=== PATIENT | male | born 1955 | race Caucasian/White ===

== ENCOUNTER 2023-01-19 08:05 | Outpatient (OUT) | payer MEDICARE, OTHER, SELFPAY ==
[2023-01-19 09:06] LABS: Basophils Absolute Auto 0.1 10^3/uL (0.0-0.1); Basophils Percent Auto 0.8 % (0.2-2.0); Eosinophils Absolute Auto 0.2 10^3/uL (0.0-0.7); Eosinophils Percent Auto 2.3 % (0.9-7.0); Hematocrit 42.3 % (42.0-54.0); Hemoglobin 13.8 g/dL (14.0-18.0); Immature Granulocytes Abs Auto 0.04 10^3/uL (0.00-0.03); Immature Granulocytes Pct Auto 0.6 % (0.0-0.5); Lymphocytes Absolute Auto 1.4 10^3/uL (1.2-3.8); Lymphocytes Percent Auto 20.8 % (20.5-60.0); Mean Corpuscular HGB Conc 32.6 g/dL (29.9-35.2); Mean Corpuscular Hemoglobin 29.2 pg (25.9-34.0); Mean Corpuscular Volume 89.6 fL (80.0-94.0); Mean Platelet Volume 9.7 fL (9.5-13.5); Monocytes Absolute Auto 0.5 10^3/uL (0.3-0.8); Monocytes Percent Auto 7.7 % (1.7-12.0); Neutrophils Absolute Auto 4.4 10^3/uL (1.4-6.5); Neutrophils Percent Auto 67.8 % (43.0-75.0); Platelet Count 271 10^3/uL (150-450); Red Blood Count 4.72 10^6/uL (4.70-6.10); White Blood Count 6.5 10^3/uL (4.0-11.0)
[2023-01-19 09:10] LABS: Alanine Aminotransferase 25 U/L (16-63); Anion Gap 14.7; BUN Creatinine Ratio 17.4; Carbon Dioxide 26.5 mmol/L (21.0-32.0); Chloride 105 mmol/L (98-107); Chol HDL Ratio 2.5; Cholesterol 135 mg/dL (<=200); Creatine Kinase 157 U/L (39-308); Estimated GFR (African America >60 (>=60); Estimated GFR (Non-African Ame >60 (>=60); Glucose 119 mg/dL (74-106); HDL Cholesterol 54 mg/dL (40-60); LDL Cholesterol Calculated 64.8 mg/dL; Magnesium 1.8 mg/dL (1.8-2.4); Potassium 4.2 mmol/L (3.5-5.1); Sodium 142 mmol/L (136-145); Triglycerides 81 mg/dL (<=150); VLDL CHOLESTEROL 16.2 mg/dL
[2023-01-19 09:25] LABS: Prostate Specific Antigen Scrn 1.14 ng/mL (<=4.00)
[2023-01-19 09:43] LABS: Estimated Average Glucose 123 mg/dL; Glycohemoglobin A1C 5.9 % (4.5-6.2)
[2023-01-19 10:33] LABS: Microalbumin Urine Random <1.3 mg/dL (<=30.0)
== END 2023-01-19 08:06 | disposition home or self-care (01) ==
PROVIDERS: PCP Internal Medicine; Visit Provider Internal Medicine
DX: E11.65 Type 2 diabetes mellitus with hyperglycemia (principal); I10 Essential (primary) hypertension; E78.00 Pure hypercholesterolemia, unspecified; R25.2 Cramp and spasm; Z12.5 Encounter for screening for malignant neoplasm of prostate; Z79.899 Other long term (current) drug therapy
CPT/HCPCS: 36415; 80048; 80061; 82043; 82550; 83036; 83735; 84460; 85025; G0103

== ENCOUNTER 2024-01-24 07:14 | Outpatient (OUT) | payer MEDICARE, OTHER, SELFPAY ==
[2024-01-24 08:32] LABS: Basophils Absolute Auto 0.1 10^3/uL (0.0-0.1); Basophils Percent Auto 1.2 % (0.2-2.0); Eosinophils Absolute Auto 0.2 10^3/uL (0.0-0.7); Eosinophils Percent Auto 3.3 % (0.9-7.0); Hematocrit 41.4 % (42.0-54.0); Hemoglobin 13.6 g/dL (14.0-18.0); Immature Granulocytes Abs Auto 0.03 10^3/uL (0.00-0.03); Immature Granulocytes Pct Auto 0.5 % (0.0-0.5); Lymphocytes Absolute Auto 1.3 10^3/uL (1.2-3.8); Lymphocytes Percent Auto 22.3 % (20.5-60.0); Mean Corpuscular HGB Conc 32.9 g/dL (29.9-35.2); Mean Corpuscular Hemoglobin 29.8 pg (25.9-34.0); Mean Corpuscular Volume 90.8 fL (80.0-94.0); Mean Platelet Volume 10.2 fL (9.5-13.5); Monocytes Absolute Auto 0.7 10^3/uL (0.3-0.8); Neutrophils Absolute Auto 3.5 10^3/uL (1.4-6.5); Neutrophils Percent Auto 60.7 % (43.0-75.0); Platelet Count 254 10^3/uL (150-450); Red Blood Count 4.56 10^6/uL (4.70-6.10); Red Cell Distribution Width 13.2 % (11.0-15.0); White Blood Count 5.8 10^3/uL (4.0-11.0)
[2024-01-24 08:58] LABS: Microalbumin Urine Random <1.3 mg/dL (<=30.0)
[2024-01-24 08:59] LABS: Alanine Aminotransferase 27 U/L (16-63); Albumin Globulin Ratio 1.3; Albumin Level 3.6 g/dL (3.4-5.0); Alkaline Phosphatase 59 U/L (46-116); Anion Gap 12.7; Aspartate Amino Transferase 18 U/L (15-37); BUN Creatinine Ratio 18.8; Bilirubin Total 0.3 mg/dL (0.2-1.0); Carbon Dioxide 26.1 mmol/L (21.0-32.0); Chloride 105 mmol/L (98-107); Chol HDL Ratio 3.9; Cholesterol 187 mg/dL (<=200); Estimated GFR (African America >60 (>=60); Estimated GFR (Non-African Ame >60 (>=60); Globulin 2.8 g/dL; Glucose 101 mg/dL (74-106); HDL Cholesterol 48 mg/dL (40-60); LDL Cholesterol Calculated 115.6 mg/dL; Potassium 4.8 mmol/L (3.5-5.1); Sodium 139 mmol/L (136-145); Total Protein 6.4 g/dL (6.4-8.2); Triglycerides 117 mg/dL (<=150); VLDL CHOLESTEROL 23.4 mg/dL
[2024-01-24 11:54] LABS: Estimated Average Glucose 117 mg/dL; Glycohemoglobin A1C 5.7 % (4.5-6.2)
== END 2024-01-24 07:15 | disposition home or self-care (01) ==
LOC: LAB 07:14
PROVIDERS: PCP Internal Medicine; Visit Provider Internal Medicine
DX: E78.00 Pure hypercholesterolemia, unspecified (principal); E11.65 Type 2 diabetes mellitus with hyperglycemia; I10 Essential (primary) hypertension; Z12.5 Encounter for screening for malignant neoplasm of prostate
CPT/HCPCS: 36415; 80053; 80061; 82043; 83036; 85025; G0103

== ENCOUNTER 2024-07-24 07:06 | Outpatient (OUT) | payer MEDICARE, OTHER, SELFPAY ==
--- OUTSIDE RECORDS SUMMARY | 2024-07-24 07:08 | XMS_ITS | CCD ---
Author Organization [facility] Care Team Providers Care Wireless Watcher Name Role Phone MD Kp Tran Attending Provider DO Raad Mccrary Primary Care Provider Raad Mccrary Primary Care Unavailable Kp Tran Admitting UnavailKp Guo Attending Unavailabl e Kp Tran Attending Unavailabl e Raad Mccrary Primary Care Unavailable Kp Tran Admitting UnavailMD Kp Guo Attending Provider [phone] DO Raad Mccrary Primary Care Provider DR RAAD MCCRARY Admitting Unavailable WES, DR HSU Primary Care Unavailable WES, DR HSU Consulting Unavailable WES, DR HSU Attending Unavailable WES, DR HSU Admitting Unavailable WES, DR HSU Primary Care Unavailable WES, DR HSU Attending Unavailable WES, DR HSU Admitting Unavailable WES, DR HSU Primary Care Unavailable WES, DR HSU Consulting Unavailable WES, DR HSU Attending Unavailable MICK, DR DAGOBERTO Kaufman Consulting Unavailable WES, DR HSU Primary Care Unavailable WES, DR HSU Consulting Unavailable WES, DR HSU Attending Unavailable WES, DR HSU Admitting Unavailable WES, DR HSU Primary Care Unavailable WES, DR HSU Consulting Unavailable WES, DR HSU Attending Unavailable WES, DR HSU Admitting Unavailable Wes, Raad Unavailable Medications Current Medications Medication Drug Class(es) Dates Sig (Normalized) Sig (Original) acetaminophen 325 mg / HYDROcodone bitartrate 5 mg oral tablet (20 sources) Opioid Agonist Start: 08-28-2023 End: 07-04-2024 take 1 tablet by mouth every six hours as needed for pain Hydrocodone-Aceta minophen 5-325 mg tablet Active 1 TAB PO Q6H as needed for Pain 120 July 04, 2024 Start: 08-28-2023 End: 08-28-2023 take 1 tablet by mouth every eight hours as needed for pain Hydrocodone-Acetaminophen 5-325 mg table t Discontinued 1 TAB PO Q8H as needed for Pain 90 August 28, 2023 August 28, 2023 12:51pm Start: 08-28-2023 End: 08-28-2023 take 1 tablet by mouth every eight hours as needed for pain Hydrocodone-Acetaminophen 5-325 mg table t Discontinued 1 TAB PO Q8H as needed for Pain 90 August 28, 2023 August 28, 2023 12:51pm Start: 08-28-2023 End: 08-28-2023 take 1 tablet by mouth every eight hours Hydrocodone-Acetaminophen Discontinued 1 TAB PO Q8H 90 August 28, 2023 August 28, 2023 1:51pm Start: 08-28-2023 End: 08-28-2023 take 1 tablet by mouth every eight hours Hydrocodone-Acetaminophen Discontinued 1 TAB PO Q8H 90 August 28, 2023 August 28, 2023 1:51pm Start: 08-28-2023 End: 08-28-2023 take 1 tablet by mouth every eight hours Hydrocodone-Acetaminophen Discontinued 1 TAB PO Q8H 90 August 28, 2023 August 28, 2023 1:51pm Start: 06-29-2023 take 1 tablet by deborah th every six hours HYDROcodone-Acetaminophen 5-325 MG 1 tab let Orally every 6 hrs Jun, Active Start: 05-29-2023 take 1 tablet by deborah th every six hours HYDROcodone-Acetaminophen 5-325 MG 1 tab let Orally every 6 hrs for 30 days start 05/29May, Active Start: 04-28-2023 take 1 tablet by deborah th every six hours HYDROcodone-Acetaminophen 5-325 MG 1 tab let Orally every 6 hrs for 30 days start04/28Apr, Active Start: 03-29-2023 take 1 tablet by deborah th every six hours HYDROcodone-Acetaminophen 5-325 MG 1 tab let Orally every 6 hrs start03/29Mar, Active Start: 02-27-2023 take 1 tablet by deborah th every six hours HYDROcodone-Acetaminophen 5-325 MG 1 tab let Orally every 6 hrs for 30 days start 02/27Feb, Active Start: 01-27-2023 take 1 tablet by deborah th every six hours HYDROcodone-Acetaminophen 5-325 MG 1 tab let Orally every 6 hrs for 30 days start 01/27Jan, Active Start: 12-27-2022 take 1 tablet by deborah th every six hours Start: 09-26-2022 take 1 tablet by deborah th every six hours HYDROcodone-Acetaminophen 5-325 MG 1 tab let Orally every 6 hrs start 09/26Sep, Active Start: 08-26-2022 take 1 tablet by deborah th every six hours HYDROcodone-Acetaminophen 5-325 MG 1 tab let Orally every 6 hrs for 30 days p/u 08/25, start 08/27Aug, Active Start: 07-28-2022 take 1 tablet by deborah th every six hours HYDROcodone-Acetaminophen 5-325 MG 1 tab let Orally every 6 hrs for 30 days Start 07/28Jul, Active Start: 04-18-2022 End: 08-28-2023 take 1 tablet by mouth every eight hours as needed for pain Hydrocodone-Acetaminophen 5-325 mg table t Discontinued 1 TAB PO Q8H as needed for Pain 120 30 July 31, 2023 August 28, 2023 12:27pm aspirin 81 mg oral tablet (20 sources) Platelet Aggregation Inhibitor, Nonsteroidal Anti-inflammatory Drug Start: 04-18-2022 take 1 capsule by mouth once daily Aspirin 81 mg Capsule Active 81 MG PO Daily April 18, 2022 12:00am take 1 tablet by deborah th every twenty-four hours Aspirin 81 MG 1 tablet Orally Once a day Active atorvastatin 10 mg oral tablet (20 sources) HMG-CoA Reductase Inhibitor Start: 04-18-2022 take 4 tablets by mouth once daily Atorvastatin 10 mg tablet Active 40 MG PO Daily April 18, 2022 12:00am Start: 04-18-2022 take 40 mg by mouth once daily Atorvastatin Active 40 MG PO Daily April 18, 2022 1:00am take 1 tablet by deborah th in the evening Atorvastatin Calcium 10 MG TAKE 1 TABLET BY MOUTH IN THE EVENING Not-Taking/PRN azithromycin 250 mg oral tablet (1 source) Macrolide Antimicrobial Start: 05-03-2024 Azithromycin 250 mg tablet Active 250 MG PO .COMPLEX 6 5 May 03, 2024 12:00am 2 tabs on first day followed by 1 tab on days 2-5 benazepril hydrochloride 20 mg oral tablet (20 sources) Angiotensin Converting Enzyme Inhibitor Start: 03-14-2024 take 1 tablet by mouth once daily Benazepril 20 mg tablet Active 0 .ROUTE .COMPLEX 90 March 14, 2024 7:42am TAKE 1 TABLET BY MOUTH EVERY DAY Start: 04-18-2022 End: 03-14-2024 take 1 tablet by mouth once daily Benazepril 20 mg tablet Discontinued 20 MG PO Daily April 18, 2022 12:00am March 14, 2024 7:42am meloxicam 7.5 mg oral tablet (20 sources) Nonsteroidal Anti-inflammatory Drug Start: 10-02-2023 take 1 tablet by mouth once daily at mealtime Meloxicam 7.5 mg tablet Active 0 .ROUTE .COMPLEX October 02, 2023 12:28pm TAKE 1 TABLET BY MOUTH EVERY DAY WITH FOOD Start: 04-18-2022 End: 10-02-2023 take 1 tablet by mouth once daily Meloxicam 7.5 mg tablet Discontinued 7.5 MG PO Daily April 18, 2022 12:00am October 02, 2023 12:29pm metFORMIN hydrochloride 500 mg oral tablet (20 sources) Biguanide Start: 02-23-2024 Metformin 500 mg tablet Active 0 .ROUTE .COMPLEX 180 February 23, 2024 11:51am TAKE 1 TABLET BEFORE BKFST AND EVENING MEAL 90 Start: 02-23-2024 Metformin Acti ve 0 .ROUTE .COMPLEX 180 February 23, 2024 12:51pm TAKE 1 TABLET BEFORE BKFST AND EVENING MEAL 90 Start: 04-18-2022 End: 02-23-2024 take 1 tablet by mouth once daily Metformin 500 mg tablet Discontinued 500 MG PO Daily April 18, 2022 12:00am February 23, 2024 11:51am take 1 tablet by deborah th every twelve hours metFORMIN HCl 500 MG 1 tablet with a meal Orally twice a day Active tiZANidine 4 mg oral tablet (19 sources) Central alpha-2 Adrenergic Agonist Start: 10-17-2023 End: 01-18-2024 take 1 tablet by mouth once daily at bedtime Tizanidine 4 mg tablet Active 4 MG PO Daily at bedtime January 18, 2024 3:08pm Start: 01-18-2023 tiZANidine HCl 4 MG 1/2 - 1 Orally q HS for 30 days Jan, Active Completed/Discontinued Medications Medication Drug Class(es) Dates Sig (Normalized) Sig (Original) Nirmatrelvir-Riton avir (Paxlovid) 300 mg (150 mg x 2)-100 mg tablets,dose pack (4 sources) Start: 12-11-2023 End: 01-23-2024 take 2 tablets by mouth once, then take 1 tablet by mouth twice daily Nirmatrelvir-Ritona vir (Paxlovid) 300 mg (150 mg x 2)-100 mg tablets,dose pack Discontinued 0 PO per package directions 08 11December 10, 2023 11:00pm January 23, 2024 8:30am take TWO 150 mg tablets of nirmatrelvir with ONE 100 mg tablet of ritonavir twice daily for 5 days orally per package directions; Start: 12-11-2023 End: 01-23-2024 take 2 tablets by mouth once, then take 1 tablet by mouth twice daily Nirmatrelvir-Ritonavir (Paxlovid) 300 mg (150 mg x 2)-100 mg tablets,dose pack Discontinued 0 PO per package directions 08 11December 11, 2023 12:00am January 23, 2024 9:30am take TWO 150 mg tablets of nirmatrelvir with ONE 100 mg tablet of ritonavir twice daily for 5 days orally per package directions; paxlovid (300/100) 20 x 150 mg & 10 x 100mg tablet therapy pack (5 sources) Start: 08-16-2022 take 3 tablets by mouth every twelve hours Paxlovid (300/100) 20 x 150 MG & 10 x 100MG 3 tablets Orally Twice a day for 5 day(s) Aug, Not-Taking/PRN {20 (nirmatrelvir 150 MG Oral Tablet) / 10 (ritonavir 100 MG Oral Tablet) } Pack [Paxlovid 5-Day] (12 sources) Start: 08-16-2022 take 3 tablets by mouth every twelve hours Start: 08-16-2022 take 3 tablets by mo uth every twelve hours Paxlovid (300/100) 20 x 150 MG & 10 x 100MG 3 tablets Orally Twice a day for 5 day(s) Aug, Not-Taking Start: 03-07-2023 take 3 tablets by mo ut every twelve hours Paxlovid (300/100) 20 x 150 MG & 10 x 100MG 3 tablets Orally Twice a day for 5 day(s) Aug, Active Problems Active Problems Problem Classification Problem Date Documented Date Episodic/Chronic Acute bronchitis (2 sources) Acute infective bronchitis; Translations: [Acute bronchitis due to other specified organisms] 05-03-2024 Episodic Allergic reactions (6 sources) Allergic contact dermatitis due to plants, except food; Translations: [Allergic contact dermatitis due to plants, except food] Episodic Deficiency and other anemia (5 sources) Anemia, unspecified; Translations: [Anemia, unspecified] Onset: 04-07-2022 Episodic Deficiency and other anemia (7 sources) Anemia; Translations: [Anemia, unspecified] 07-23-2024 Episodic Diabetes mellitus with complications (20 sources) Type 2 diabetes mellitus with hyperglycemia; Translations: [Hyperglycemia due to type 2 diabetes mellitus] Onset: 01-13-2022 Chronic Disorders of lipid metabolism (20 sources) Pure hypercholesterolemia, unspecified; Translations: [Hypercholesterolemia ] Onset: 04-10-2022 Chronic Essential hypertension (20 sources) Essential (primary) hypertension; Translations: [Essential hypertension] Onset: 01-13-2022 Chronic Hyperplasia of prostate (20 sources) Lower urinary tract symptoms due to benign prostatic hypertrophy; Translations: [Benign prostatic hyperplasia with lower urinary tract symptoms] Chronic Joint disorders and dislocations; trauma-related (6 sources) 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; Translations: [Traumatic arthropathy, left ankle and foot] 07-31-2023 Chronic Osteoarthritis (20 sources) Localized, secondary osteoarthritis of the ankle and/or foot; 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, left ankle and foot] Chronic Other aftercare (6 sources) High risk drug monitoring status; Translations: [shelter (current) use of opiate analgesic] Episodic Other aftercare (12 sources) Long-term current use of drug therapy; Translations: [shelter (current) use of opiate analgesic] Episodic Other aftercare (6 sources) 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 EHR Cmte Other and unspecified benign neoplasm (18 sources) Benign neoplasm of colon; Translations: [Benign neoplasm of descending colon] Episodic Other connective tissue disease (6 sources) Pain in limb; Translations: [Pain in left leg] Episodic Other connective tissue disease (2 sources) Cramp and spasm Episodic Other nervous system disorders (6 sources) Chronic pain due to injury; Translations: [Chronic pain due to trauma] Chronic Other nutritional; endocrine; and metabolic disorders (4 sources) Overweight; Translations: [Overweight] Episodic Other nutritional; endocrine; and metabolic disorders (4 sources) Overweight; Translations: [Overweight] 10-18-2023 Episodic Other screening for suspected conditions (not mental disorders or infectious disease) (6 sources) Encounter for screening for malignant neoplasm of prostate; Translations: [Screening for malignant neoplasms of prostate] Onset: 01-08-2022 Episodic Spondylosis; intervertebral disc disorders; other back problems (11 sources) Lumbar spondylosis; Translations: [Spondylosis without myelopathy or radiculopathy, lumbar region] 10-16-2023 Chronic Unclassified (1 source) Encounter for screening for malignant neoplasm of colon; Translations: [Encounter for screening for malignant neoplasm of colon] Onset: 04-18-2022 Unclassified (1 source) Encounter for preprocedural laboratory examination; Translations: [Encounter for preprocedural laboratory examination] Onset: 04-14-2022 Viral infection (5 sources) Disease caused by 2019-nCoV; Translations: [COVID-19] 12-11-2023 Episodic Past or Other Problems Problem Classification Problem Date Documented Da te Episodic/Chronic Other aftercare (1 source) Other correction (current) drug therapy; Translations: [OTH CARE HOME CURRENT DRUG THERAPY] Onset: 01-13-2022 Episodic Other connective tissue disease (4 sources) Pain in left leg; Translations: [PAIN IN LEFT LEG] Onset: 08-05-2021 Episodic Viral infection (1 source) COVID-19 Results Test Name Value Interpretation Reference Range Facility Basophils Auto (Bld) [#/Vol] on 01-24-2024 Basophils (Bld) [#/Vol] 0.1 10 3/uL 0.0-0.1 [facility] Basophils/100 WBC Auto (Bld) on 01-24-2024 Basophils/100 WBC (Bld) 1.2 % 0.2-2.0 [facility] Cholesterol in LDL Calc [Mas s/Vol]on 01-24-2024 Cholesterol in LDL [Mass/Vol] 115.6 mg/dL [facility] Comment on above: <100 mg/dl [id number] 0-129 mg/dl NEAR OR ABOVE [id number] mg/dl BORDERLINE [id number] mg/dl HIGH>190 mg/dl VERY HIGH Cholesterol in VLDL Calc [Ma ss/Vol]on 01-24-2024 Cholesterol in VLDL [Mass/Vol] 23.4 mg/dL [facility] Eosinophils/100 WBC Auto (Bl d)on 01-24-2024 Eosinophils/100 WBC (Bld) 3.3 % 0.9-7.0 [facility] Erythrocyte distribution wid th Auto (RBC) [Ratio]on 01-24-2024 Erythrocyte distribution width (RBC) [Ratio] 13.2 % 11.0-15.0 [facility] Estimated glomerular filtrat ion rate (GFR) non- Americanon 01-24-2024 GFR/1.73 sq M.predicted among non-blacks MDRD (S/P/Bld) [Vol rate/Area] mL/min/{1.73_m2} >=60 [facility] Globulin Calc (S) [Mass/Vol] on 01-24-2024 Globulin (S) [Mass/Vol] 2.8 g/dL [facility] Glucose mean value [Mass/vol ume] in Blood Estimated from glycated hemoglobinon 01-24-2024 Average glucose Estimated from glycated hemoglobin (Bld) [Mass/Vol] 117 mg/dL [facility] Hematocrit Auto (Bld) [Volum e fraction]on 01-24-2024 Hematocrit (Bld) [Volume fraction] 41.4 % Low 42.0-54.0 [facility] Hemoglobin [Mass/volume] in Bloodon 01-24-2024 Hemoglobin (Bld) [Mass/Vol] 13.6 g/dL Low 14.0-18.0 [facility] Laboratory - Chemistry and C hemistry - challengeon 01-24-2024 Albumin [Mass/Vol] 3.6 g/dL 3.4-5.0 [facility] ALP [Catalytic activity/Vol] 59 U/L 46-116 [facility] ALT [Catalytic activity/Vol] 27 U/L 16-63 [facility] AST [Catalytic activity/Vol] 18 U/L 15-37 [facility] Bilirubin [Mass/Vol] 0.3 mg/dL 0.2-1.0 [facility] Calcium [Mass/Vol] 9.0 mg/dL 8.5-10.1 [facility] Chloride [Moles/Vol] 105 mmol/L 98-107 [facility] Cholesterol [Mass/Vol] 187 mg/dL <=200 [facility] Cholesterol in HDL [Mass/Vol] 48 mg/dL 40-60 [facility] Comment on above: > or =60 mg/dl - LOW CARDIOVASCULAR RISK<40 mg/dl - HIGH CARDIOVASCULAR RISK CO2 [Moles/Vol] 26.1 mmol/L 21.0-32.0 [facility] Creatinine [Mass/Vol] 1.12 mg/dL 0.70-1.30 [facility] GFR/1.73 sq M.predicted MDRD (S/P/Bld) [Vol rate/Area] mL/min/{1.73_m2} >=60 [facility] Glucose [Mass/Vol] 101 mg/dL 74-106 [facility] Potassium [Moles/Vol] 4.8 mmol/L 3.5-5.1 [facility] Protein [Mass/Vol] 6.4 g/dL 6.4-8.2 [facility] Sodium [Moles/Vol] 139 mmol/L 136-145 [facility] Triglyceride [Mass/Vol] 117 mg/dL <=150 [facility] Urea nitrogen [Mass/Vol] 21.0 mg/dL High 7.0-18.0 [facility] Urea nitrogen/Creatinine [Mass ratio] 18.8 mg/mg [facility] Laboratory - Hematology and Cell countson 01-24-2024 HbA1c (Bld) [Mass fraction] 5.7 % 4.5-6.2 [facility] Comment on above: ADA RECOMMENDED LIMI T 4.0 - 6.0ADA THERAPEUTIC TARGET < 7.0ACTION SUGGESTED> 7.0 Immature granulocytes/100 WBC (Bld) 0.5 % 0.0-0.5 [facility] Leukocytes [#/volume] correc rehan for nucleated erythrocytes in Blood by Automated counon 01-24-2024 WBC corrected for nucl RBC Auto (Bld) [#/Vol] 5.8 10 3/uL 4.0-11.0 [facility] Lymphocytes Auto (Bld) [#/Vo l]on 01-24-2024 Lymphocytes (Bld) [#/Vol] 1.3 10 3/uL 1.2-3.8 [facility] Lymphocytes/100 WBC Auto (Bl d)on 01-24-2024 Lymphocytes/100 WBC (Bld) 22.3 % 20.5-60.0 [facility] MCH Auto (RBC) [Entitic mass ]on 01-24-2024 MCH (RBC) [Entitic mass] 29.8 pg 25.9-34.0 [facility] MCHC Auto (RBC) [Mass/Vol]on 01-24-2024 MCHC (RBC) [Mass/Vol] 32.9 g/dL 29.9-35.2 [facility] MCV Auto (RBC) [Entitic vol] on 01-24-2024 MCV (RBC) [Entitic vol] 90.8 fL 80.0-94.0 [facility] Microalbumin [Mass/volume] i n Urineon 01-24-2024 Albumin DL <= 20 mg/L (U) [Mass/Vol] mg/dL <=30.0 [facility] Monocytes Auto (Bld) [#/Vol] on 01-24-2024 Monocytes (Bld) [#/Vol] 0.7 10 3/uL 0.3-0.8 [facility] Monocytes/100 WBC Auto (Bld) on 01-24-2024 Monocytes/100 WBC (Bld) 12.0 % 1.7-12.0 [facility] Neutrophils Auto (Bld) [#/Vo l]on 01-24-2024 Neutrophils (Bld) [#/Vol] 3.5 10 3/uL 1.4-6.5 [facility] Neutrophils/100 WBC Auto (Bl d)on 01-24-2024 Neutrophils/100 WBC (Bld) 60.7 % 43.0-75.0 [facility] No Panel Informationon 01-23 Eosinophils # (Auto) 0.2 10 3/uL 0.0-0.7 [facility] Immature Granulocyte # (Auto) 0.03 10 3/uL 0.00-0.03 [facility] Prostate Specific Antigen Screen 1.00 ng/mL <=4.00 [facility] Platelet mean volume Auto (B ld) [Entitic vol]on 01-24-2024 Platelet mean volume (Bld) [Entitic vol] 10.2 fL 9.5-13.5 [facility] Platelets Auto (Bld) [#/Vol] on 01-24-2024 Platelets (Bld) [#/Vol] 254 10 3/uL 150-450 [facility] RBC Auto (Bld) [#/Vol]on RBC (Bld) [#/Vol] 4.56 10 6/uL Low 4.70-6.10 [facility] Serum or plasma albumin/glob ulin mass ratioon 01-24-2024 Albumin/Globulin [Mass ratio] 1.3 {ratio} [facility] Serum or plasma anion gap de terminationon 01-24-2024 Anion gap [Moles/Vol] 12.7 mmol/L [facility] Serum or plasma total choles terol/high density lipoprotein (HDL) cholesterol mass naye 01-24-2024 Cholesterol.total/Chol esterol in HDL [Mass ratio] 3.9 {ratio} [facility] Comment on above: 3.3 - 4.4 LOW RISK4. 4 - 7.1 AVERAGE RISK7.1 - 11.0 MODERATE RISK>11.0 HIGH RISK A1C with Estimated Average [facility] 07-22-2022 A1C with Estimated Average Glu [employer] Other GLYCOHEMOGLOBIN A1Con 2022 ADA RECOMMENDATION SEE BELOW Normal [facility] Comment on above: Result Comment: ADA RECOMMENDED LIMIT 4.0 - 6.0 ADA THERAPEUTIC TARGET < 7.0 ACTION SUGGESTED > 7.0 Performed By: #### A 1C #### [facility] [address], [place] [address] Dr. Ramiro Bain Glucose [Mass/Vol] 128 mg/dL Normal [facility] Comment on above: Performed By: #### A 1C #### [facility] [address], [place] [address] Dr. Ramiro aBin HbA1c (Bld) [Mass fraction] 6.1 % Normal 4.5-6.2 [facility] Comment on above: Performed By: #### A 1C #### [facility] [address], [place] [address] Dr. Ramiro Bain Glucose Glucometer (dC) [M ass/Vol]Ordered By: pK Tran on 04-18-2022 Glucose [Mass/Vol] 104 mg/dL [facility] Comment on above: Random Glucose Refer ence Range is dependent on time and content of last meal. Glucose of more than 200 mg/dL in a nonstressed, ambulatory subject supports the diagnosis of Diabetes Mellitus. Glucose Poct Glucometerson 1 06-18-2021 Glucose [Mass/Vol] 104 mg/dL Normal [facility] Comment on above: Result Comment: [place] Glucose Reference Range is dependent on time and content of last meal. Glucose of more than 200 mg/dL in a nonstressed, ambulatory subject supports the diagnosis of Diabetes Mellitus. PERFORMED BY: [facility] [address] [place] [address] PATHOLOGIST PROCESSING CLERK CELINE JOSUE M.D. Performed By: #### G SHAYNA #### Point of Care testing , COVID-19 Antigenon 2 COVID-19 Antigen Healthcare Worker?: N Reference Range: Negative Negative results, from patients with symptom onset beyond five days, should be treated as presumptive and confirmation with a molecular assay, if necessary, for patient management, may be performed. Negative results do not rule out COVID-19 and should not be used as the sole basis for treatment or patient management decisions, including infection control decisions. Negative results should be considered in the context of a patient's recent exposures, history and the presence of clinical signs and symptoms consistent with COVID-19. The Jacky SARS Antigen ISABELLE does not differentiate between SARS-CoV and SARS-CoV-2. This test was developed and its performance characteristic determined by [employer] and validated at [facility]. This test has not been FDA cleared or approved. This test has been authorized by FDA under an Emergency Use Authorization (EUA). This test has been validated in accordance with the FDA's Guidance Document (Policy for Diagnostics Testing in Laboratories Certified to Perform High Complexity Testing under CLIA prior to Emergency Use Authorization for Coronavirus Disease-2019 during the Public Health Emergency) issued on September 12, 2019. This test is only authorized for the duration of time the declaration that circumstances exist justifying the authorization of the emergency use of in vitro diagnostic tests for detection of SARS-CoV-2 virus and/or diagnosis of COVID-19 infection under section 564(b)(1) of the Act, 21 U.S.C. 360bbb-3(b)(1), unless the authorization is terminated or revoked sooner. SARS-CoV+SARS-CoV- 2 (COVID-19) Ag [Presence] in Respiratory specimen by Rapid immunoassay Negative for SARS Antigen by ISABELLE PERFORMED BY: [facility] [address] [place] [address] PATHOLOGIST PROCESSING CLERK CELINE JOSUE M.D. Normal [facility] Comment on above: Performed By: #### S OFIANEG, COVID-19 JACKY #### [facility] [address] COVID-19 SOFIAOrdered By: Meggan Tran on 04-14-2022 SARS-CoV+SARS-CoV-2 (COVID-19) Ag IA.rapid Ql (Resp) Negative Negative [facility] Comment on above: This is a duplicate Jacky SARS Antigen (ISABELLE) result to be used for statistical tracking purpose only. No Panel InformationOrdered By: Kp Tran on 04-14-2022 SARS Antigen (LFIA) [facility] Jacky Ag Negativeon 04-14-20 Jacky Ag Negative Negative Normal Negative [facility] Comment on above: Result Comment: This is a duplicate Jacky SARS Antigen (ISABELLE) result to be used for statistical tracking purpose only. PERFORMED BY: [facility] [address] [place] [address] PATHOLOGIST PROCESSING CLERK CELINE JOSUE M.D. Performed By: #### S OFVALARIEEG, COVID-19 JACKY #### [facility] [address] CBC AUTO DIFFon 04-07-2022 BASO # 0.1 103/ul Normal 0.0-0.1 [facility] Comment on above: Performed By: #### C BC #### [facility] [address] [address] [address] Ramiro Bain Basophils/100 WBC (Bld) 1.0 % Normal 0.2-2.0 [facility] Comment on above: Performed By: #### C BC #### [facility] [address] [address] [address] Ramiro Bain EO # 0.2 103/ul Normal 0.0-0.7 [facility] Comment on above: Performed By: #### C BC #### [facility] [address] [address] [address] Ramiro Bain Eosinophils/100 WBC (Bld) 2.3 % Normal 0.9-7.0 [facility] Comment on above: Performed By: #### C BC #### [facility] [address] [address] [address] Ramiro Bain Erythrocyte distribution width (RBC) [Ratio] 12.7 % Normal 11.0-15.0 [facility] Comment on above: Performed By: #### C BC #### [facility] [address] [address] [address] Ramiro Bain Hematocrit (Bld) [Volume fraction] 41.6 % Critically low 42.0-54.0 [facility] Comment on above: Performed By: #### C BC #### [facility] [address] [place] [address] Dr. Ramiro Bain Hemoglobin (Bld) [Mass/Vol] 13.8 g/dL Critically low 14.0-18.0 [facility] Comment on above: Performed By: #### C BC #### [facility] [address] [place] [address] Dr. Ramiro Bain IG # 0.03 10e3/ul Normal 0.00-0.03 [facility] Comment on above: Performed By: #### C BC #### [facility] [address] [place] [address] Dr. Ramiro Bain IG % 0.4 % Normal 0.0-0.5 [facility] Comment on above: Performed By: #### C BC #### [facility] [address] [place] [address] Dr. Ramiro Bain LYMPH # 1.8 103/ul Normal 1.2-3.8 [facility] Comment on above: Performed By: #### C BC #### [facility] [address] [place] [address] Dr. Ramiro Bain Lymphocytes/100 WBC (Bld) 22.4 % Normal 20.5-60.0 [facility] Comment on above: Performed By: #### C BC #### [facility] [address] [place] [address] Dr. Ramiro Bain MANUAL DIFF REQ NO Normal [facility] Comment on above: Performed By: #### C BC #### [facility] [address] [place] [address] Dr. Ramiro Bain MCH (RBC) [Entitic mass] 29.9 pg Normal 25.9-34.0 [facility] Comment on above: Performed By: #### C BC #### [facility] [address] [place] [address] Dr. Ramiro Bain MCHC (RBC) [Mass/Vol] 33.2 g/dL Normal 29.9-35.2 [facility] Comment on above: Performed By: #### C BC #### [facility] [address] [address] [address] Ramiro Bain MCV (RBC) [Entitic vol] 90.0 fL Normal 80.0-94.0 [facility] Comment on above: Performed By: #### C BC #### [facility] [address] [address] [address] Ramiro Bain MONO # 0.7 103/ul Normal 0.3-0.8 [facility] Comment on above: Performed By: #### C BC #### [facility] [address] [address] [address] Ramiro Bain Monocytes/100 WBC (Bld) 8.2 % Normal 1.7-12.0 [facility] Comment on above: Performed By: #### C BC #### [facility] [address] [place] [address] Dr. Ramiro Bain NEUT # 5.4 103/ul Normal 1.4-6.5 [facility] Comment on above: Performed By: #### C BC #### [facility] [address] [place] [address] Dr. Ramiro Bain Neutrophils/100 WBC (Bld) 65.7 % Normal 43.0-75.0 [facility] Comment on above: Performed By: #### C BC #### [facility] [address] [place] [address] Dr. Ramiro Bain Platelet mean volume (Bld) [Entitic vol] 9.3 fL Critically low 9.5-13.5 [facility] Comment on above: Performed By: #### C BC #### [facility] [address] [place] [address] Dr. Ramiro Bain PLT 272 103/ul Normal 150-450 [facility] Comment on above: Performed By: #### C BC #### [facility] [id number] Ramiro Bain RBC 4.62 106/ul Critically low 4.70-6.10 [facility] Comment on above: Performed By: #### C BC #### [facility] [address] [address] [address] Ramiro Bain WBC 8.1 103/ul Normal 4.0-11.0 [facility] Comment on above: Performed By: #### C BC #### [facility] [address] [place] [address] Dr. Ramiro Bain CPKon 04-07-2022 CK [Catalytic activity/Vol] 130 U/L Normal 39-308 [facility] Comment on above: Performed By: #### A LT DLDL, CK #### [facility] [address] [place] [address] Dr. Ramiro Bain DIRECT LDLon 04-07-2022 Cholesterol in LDL [Mass/Vol] 62 mg/dL Normal [facility] Comment on above: Performed By: #### A LT DLDL, CK #### [facility] [address] [place] [address] Dr. Ramiro Bain DLDL NORMAL SEE BELOW Normal [facility] Comment on above: Result Comment: <100 mg/dl OPTIMAL 100 - 129 mg/dl NEAR OR ABOVE OPTIMAL 130 - 159 mg/dl BORDERLINE HIGH 160 - 189 mg/dl HIGH >190 mg/dl VERY HIGH Performed By: #### A DAVID COATSL, CK #### [facility] [address] [place] [address] Dr. Ramiro Bain SGPTon 04-07-2022 ALT [Catalytic activity/Vol] 23 U/L Normal 16-63 [facility] Comment on above: Performed By: #### A LT DLDL, CK #### [facility] [address] [place] [address] Dr. Ramiro Bain CBC AUTO DIFFon 01-08-2022 BASO # 0.1 103/ul Normal 0.0-0.1 [facility] Comment on above: Performed By: #### C BC #### [facility] [address] [place] [address] Dr. Ramiro Bain Basophils/100 WBC (Bld) 1.1 % Normal 0.2-2.0 [facility] Comment on above: Performed By: #### C BC #### [facility] [address] [place] [address] Dr. Ramiro Bain EO # 0.2 103/ul Normal 0.0-0.7 [facility] Comment on above: Performed By: #### C BC #### [facility] [address] [place] [address] Dr. Ramiro Bain Eosinophils/100 WBC (Bld) 3.1 % Normal 0.9-7.0 [facility] Comment on above: Performed By: #### C BC #### [facility] [address] [place] [address] Dr. Ramiro aBin Erythrocyte distribution width (RBC) [Ratio] 12.8 % Normal 11.0-15.0 [facility] Comment on above: Performed By: #### C BC #### [facility] [address] [place] [address] Dr. Ramiro Bain Hematocrit (Bld) [Volume fraction] 41.2 % Critically low 42.0-54.0 [facility] Comment on above: Performed By: #### C BC #### [facility] [address] [place] [address] Dr. Ramiro Bain Hemoglobin (Bld) [Mass/Vol] 13.8 g/dL Critically low 14.0-18.0 [facility] Comment on above: Performed By: #### C BC #### [facility] [address] [place] [address] Dr. Ramiro Bain IG # 0.03 10e3/ul Normal 0.00-0.03 [facility] Comment on above: Performed By: #### C BC #### [facility] [address] [place] [address] Dr. Ramiro Bain IG % 0.4 % Normal 0.0-0.5 [facility] Comment on above: Performed By: #### C BC #### [facility] [address] [place] [address] Dr. Ramiro Bain LYMPH # 2.1 103/ul Normal 1.2-3.8 [facility] Comment on above: Performed By: #### C BC #### [facility] [address] [place] [address] Dr. Ramiro Bain Lymphocytes/100 WBC (Bld) 29.5 % Normal 20.5-60.0 [facility] Comment on above: Performed By: #### C BC #### [facility] [address] [place] [address] Dr. Ramiro Bain MANUAL DIFF REQ NO Normal [facility] Comment on above: Performed By: #### C BC #### [facility] [address] [place] [address] Dr. Ramiro Bain MCH (RBC) [Entitic mass] 30.5 pg Normal 25.9-34.0 [facility] Comment on above: Performed By: #### C BC #### [facility] [address] [place] [address] Dr. Ramiro Bain MCHC (RBC) [Mass/Vol] 33.5 g/dL Normal 29.9-35.2 [facility] Comment on above: Performed By: #### C BC #### [facility] [address] [place] [address] Dr. Ramiro Bain MCV (RBC) [Entitic vol] 90.9 fL Normal 80.0-94.0 [facility] Comment on above: Performed By: #### C BC #### [facility] [address] [place] [address] Dr. Ramiro Bain MONO # 0.6 103/ul Normal 0.3-0.8 [facility] Comment on above: Performed By: #### C BC #### [facility] [address] [place] [address] Dr. Ramiro Bain Monocytes/100 WBC (Bld) 8.6 % Normal 1.7-12.0 [facility] Comment on above: Performed By: #### C BC #### [facility] [address] [place] [address] Dr. Ramiro Bain NEUT # 4.0 103/ul Normal 1.4-6.5 [facility] Comment on above: Performed By: #### C BC #### [facility] [address] [place] [address] Dr. Ramiro Bain Neutrophils/100 WBC (Bld) 57.3 % Normal 43.0-75.0 [facility] Comment on above: Performed By: #### C BC #### [facility] [address] [address] [address] Ramiro Bain Platelet mean volume (Bld) [Entitic vol] 9.1 fL Critically low 9.5-13.5 [facility] Comment on above: Performed By: #### C BC #### [facility] [address] [address] [address] Ramiro Bain PLT 272 103/ul Normal 150-450 [facility] Comment on above: Performed By: #### C BC #### [facility] [address] [address] [address] Ramiro Bain RBC 4.53 106/ul Critically low 4.70-6.10 [facility] Comment on above: Performed By: #### C BC #### [facility] [address] [address] [address] Ramiro Bain WBC 7.0 103/ul Normal 4.0-11.0 [facility] Comment on above: Performed By: #### C BC #### [facility] [address] [address] [address] Ramiro Bain GLYCOHEMOGLOBIN A1Con 2021 ADA RECOMMENDATION SEE BELOW Normal [facility] Comment on above: Result Comment: ADA RECOMMENDED LIMIT 4.0 - 6.0 ADA THERAPEUTIC TARGET < 7.0 ACTION SUGGESTED > 7.0 Performed By: #### A 1C ####[facility] [address] [address]Dr. Ramiro Bain Glucose [Mass/Vol] 126 mg/dL Normal [facility] Comment on above: Performed By: #### A 1C ####[facility] [address] [id number]. Ramiro Bain HbA1c (Bld) [Mass fraction] 6.0 % Normal 4.5-6.2 [facility] Comment on above: Performed By: #### A 1C ####[facility] [address] [address]Dr. Ramiro Bain LIPID PROFILEon 01-08-2022 CHOL-HDL RATIO NORM SEE BELOW Normal [facility] Comment on above: Result Comment: 3.3 - 4.4 LOW RISK 4.4 - 7.1 AVERAGE RISK 7.1 - 11.0 MODERATE RISK >11.0 HIGH RISK Performed By: #### L IPID, ALT, BMP #### [facility] [address] [address] [address] Ramiro Bain Cholesterol [Mass/Vol] 195 mg/dL Normal <=[address] [facility] Comment on above: Performed By: #### L IPID, ALT, BMP #### [facility] [address] [address] [address] Ramiro Bain Cholesterol in HDL [Mass/Vol] 42 mg/dL Normal 40-60 [facility] Comment on above: Performed By: #### L IPID, ALT, BMP #### [facility] [address] [place] [address] Dr. Ramiro Bain Cholesterol in LDL [Mass/Vol] 119.0 mg/dL Normal [facility] Comment on above: Performed By: #### L IPID, ALT, BMP #### [facility] [address] [address] [address] Ramiro Bain Cholesterol.total/Chol esterol in HDL [Mass ratio] 4.6 {ratio} Normal [facility] Comment on above: Performed By: #### L IPID, ALT, BMP #### [facility] [address] [address] [address] Ramiro Bain HDL NORMAL > or = 60 mg/dl - LOW CARDIOVASCULAR RISK <40 mg/dl - HIGH CARDIOVASCULAR RISK Normal [facility] Comment on above: Performed By: #### L IPID, ALT, BMP #### [facility] [address] [place] [address] Dr. Ramiro Bain LDL CALC NORMAL SEE BELOW Normal [facility] Comment on above: Result Comment: <100 mg/dl OPTIMAL 100 - 129 mg/dl NEAR OR ABOVE OPTIMAL 130 - 159 mg/dl BORDERLINE HIGH 160 - 189 mg/dl HIGH >190 mg/dl VERY HIGH Performed By: #### L IPID, ALT, BMP #### [facility] [address] [address] [address] Ramiro Bain Triglyceride [Mass/Vol] 168 mg/dL Critically high <=150 [facility] Comment on above: Performed By: #### L IPID, ALT, BMP #### [facility] [address] [address] [address] Ramiro Bain VLDL CALC 33.6 mg/dL Normal [facility] Comment on above: Performed By: #### L IPID, ALT, BMP #### [facility] [address] [address] [address] Ramiro Bain MICROALBUMIN, RAND URon 07-3 mALB 1.4 mg/L Normal <=30.0 [facility] Comment on above: Performed By: #### M ALBR ####[facility] [address] [address]DrFernando Bain PROF CHEM 8 (BAS METB)on Anion gap [Moles/Vol] 10.8 mmol/L Normal [facility] Comment on above: Performed By: #### L IPID, ALT, BMP ####[facility] [address] [address]DrFernando Bain Calcium [Mass/Vol] 8.7 mg/dL Normal 8.5-10.1 [facility] Comment on above: Performed By: #### L IPID, ALT, BMP ####[facility] [address] [address]DrFernando Bain Chloride [Moles/Vol] 107 mmol/L Normal 98-107 [facility] Comment on above: Performed By: #### L IPID, ALT, BMP ####[facility] [address] [address]DrFernando Bain CO2 [Moles/Vol] 27.7 mmol/L Normal 21.0-32.0 [facility] Comment on above: Performed By: #### L IPID, ALT, BMP ####[facility] [address] [address]Dr. Ramiro Bain Creatinine [Mass/Vol] 1.12 mg/dL Normal 0.70-1.30 [facility] Comment on above: Performed By: #### L IPID, ALT, BMP ####[facility] [address] [address]Dr. Ramiro Bain EGFR-AF BENINESE >60 Normal >=60 [facility] Comment on above: Performed By: #### L IPID, ALT, BMP ####[facility] [address] [address]Dr. Ramiro Bain EGFR-NON AF BENINESE >60 Normal >=60 [facility] Comment on above: Performed By: #### L IPID, ALT, BMP ####[facility] [address] [address]Dr. Ramiro Bain Glucose [Mass/Vol] 110 mg/dL Critically high 74-106 [facility] Comment on above: Performed By: #### L IPID, ALT, BMP ####[facility] [address] [address]Dr. Ramiro Bain Potassium [Moles/Vol] 4.5 mmol/L Normal 3.5-5.1 [facility] Comment on above: Performed By: #### L IPID, ALT, BMP ####[facility] [address] [address]Dr. Ramiro Bain Sodium [Moles/Vol] 141 mmol/L Normal 136-145 [facility] Comment on above: Performed By: #### L IPID, ALT, BMP ####[facility] [address] [address]Dr. Ramiro Bain Urea nitrogen [Mass/Vol] 22.0 mg/dL Critically high 7.0-18.0 [facility] Comment on above: Performed By: #### L IPID, ALT, BMP ####[facility] [address] [address]Dr. Ramiro Bain Urea nitrogen/Creatinine [Mass ratio] 19.6 mg/mg Normal [facility] Comment on above: Performed By: #### L IPID, ALT, BMP ####[facility] [address] [place], [place] [address]Fa. Ramiro Bain SGPTon 01-08-2022 ALT [Catalytic activity/Vol] 22 U/L Normal 16-63 [facility] Comment on above: Performed By: #### L IPID, ALT, BMP ####[facility] [address] [place], [place] [address]Pg. Ramiro Bain Vital Signs Date Time Vital Sign Value Performing Clinician Facility 07-23-2024 08:37-0500 Body height 177.8 cm [facility] 07-23-2024 08:37-0500 Body mass index (BMI) [Ratio] 29.4 kg/m2 [facility] 07-23-2024 08:37-0500 Body weight 93.04 kg [facility] 07-23-2024 08:37-0500 Diastolic blood pressure 89 mm[Hg] [facility] 07-23-2024 08:37-0500 Heart rate 87 /min [facility] 07-23-2024 08:37-0500 Respiratory rate 12 /min [facility] 07-23-2024 08:37-0500 Systolic blood pressure 139 mm[Hg] [facility] 04-26-2024 08:27-0500 Body height 177.8 cm [facility] 04-26-2024 08:27-0500 Body mass index (BMI) [Ratio] 28.5 kg/m2 [facility] 04-26-2024 08:27-0500 Body weight 90.32 kg [facility] 04-26-2024 08:27-0500 Diastolic blood pressure 73 mm[Hg] [facility] 04-26-2024 08:27-0500 Heart rate 73 /min [facility] 04-26-2024 08:27-0500 Respiratory rate 12 /min [facility] 04-26-2024 08:27-0500 Systolic blood pressure 177 mm[Hg] [facility] 01-23-2024 09:33-0400 Body height 177.8 cm [facility] 01-23-2024 09:33-0400 Body mass index (BMI) [Ratio] 28 kg/m2 [facility] 01-23-2024 09:33-0400 Body weight 88.67 kg [facility] 01-23-2024 09:33-0400 Diastolic blood pressure 67 mm[Hg] [facility] 01-23-2024 09:33-0400 Heart rate 69 /min [facility] 01-23-2024 09:33-0400 Respiratory rate 12 /min [facility] 01-23-2024 09:33-0400 Systolic blood pressure 139 mm[Hg] [facility] 10-18-2023 08:37-0400 Body height 177.8 cm [facility] 10-18-2023 08:37-0400 Body mass index (BMI) [Ratio] 28.4 kg/m2 [facility] 10-18-2023 08:37-0400 Body weight 89.81 kg [facility] 10-18-2023 08:37-0400 Diastolic blood pressure 76 mm[Hg] [facility] 10-18-2023 08:37-0400 Heart rate 84 /min [facility] 10-18-2023 08:37-0400 Respiratory rate 12 /min [facility] 10-18-2023 08:37-0400 Systolic blood pressure 165 mm[Hg] [facility] 07-21-2023 09:30-0500 Body height 177.8 cm Raad Ball Other [facility] [employer] Other 07-21-2023 09:30-0500 Body mass index (BMI) [Ratio] 29.33 kg/m2 Raad Ball Other [facility] [employer] Other 07-21-2023 09:30-0500 Body weight 92.72 kg Raad Ball Other [facility] [employer] Other 07-21-2023 09:30-0500 Diastolic blood pressure 77 mm[Hg] Raad Ball Other [facility] [employer] Other 07-21-2023 09:30-0500 Respiratory rate 12 /min Raad Ball Other [employer] Other 07-21-2023 09:30-0500 Systolic blood pressure 159 mm[Hg] Raad Ball Other [employer] Other 04-20-2023 09:00-0500 Body height 177.8 cm Raad Ball Other [employer] Other 04-20-2023 09:00-0500 Body mass index (BMI) [Ratio] 28.72 kg/m2 Raad Ball Other [employer] Other 04-20-2023 09:00-0500 Body weight 90.81 kg Raad Ball Other [employer] Other 04-20-2023 09:00-0500 Diastolic blood pressure 70 mm[Hg] Raad Ball Other [employer] Other 04-20-2023 09:00-0500 Respiratory rate 12 /min Raad Ball Other [employer] Other 04-20-2023 09:00-0500 Systolic blood pressure 170 mm[Hg] Raad Ball Other [employer] Other 10-18-2022 10:30-0400 Body height 177.8 cm Raad Ball Other [employer] Other 10-18-2022 10:30-0400 Body mass index (BMI) [Ratio] 29.84 kg/m2 Raad Ball Other [employer] Other 10-18-2022 10:30-0400 Body weight 94.35 kg Raad Ball Other [employer] Other 10-18-2022 10:30-0400 Diastolic blood pressure 77 mm[Hg] Raad Ball Other [employer] Other 10-18-2022 10:30-0400 Respiratory rate 12 /min Raad Ball Other [employer] Other 10-18-2022 10:30-0400 Systolic blood pressure 149 mm[Hg] Raad Ball Other [employer] Other 07-21-2022 08:30-0500 Body height 177.8 cm Raad Ball Other [employer] Other 07-21-2022 08:30-0500 Body mass index (BMI) [Ratio] 29.99 kg/m2 Raad Ball Other [employer] Other 07-21-2022 08:30-0500 Body weight 94.8 kg Raad Ball Other [employer] Other 07-21-2022 08:30-0500 Diastolic blood pressure 64 mm[Hg] Raad Ball Other [employer] Other 07-21-2022 08:30-0500 Respiratory rate 12 /min Raad Ball Other [employer] Other 07-21-2022 08:30-0500 Systolic blood pressure 128 mm[Hg] Raad Ball Other [employer] Other 04-18-2022 11:18-0500 Diastolic blood pressure 74 mm[Hg] DO Raad Ball Work Phone: [facility] 04-18-2022 11:18-0500 Heart rate 67 /min DO Raad Ball Work Phone: [facility] 04-18-2022 11:18-0500 SaO2% (BldA) [Mass fraction] 97 % DO Raad Ball Work Phone: [facility] 04-18-2022 11:18-0500 Systolic blood pressure 143 mm[Hg] DO Raad Ball Work Phone: [facility] 04-18-2022 09:57-0500 Body height 182.88 cm DO Raad Ball Work Phone: [facility] 04-18-2022 09:57-0500 Body temperature 98.4 [degF] DO Raad Ball Work Phone: [facility] 04-18-2022 09:57-0500 Body weight 97.52 kg DO Raad Ball Work Phone: [facility] 04-18-2022 09:57-0500 Respiratory rate 16 /min DO Raad Ball Work Phone: [facility] Encounters Encounter Date Encounter Type Care Provider Facility Start: 07-23-2024 End: 07-23-2024 ambulatory [facility] Work Phone: Start: 07-23-2024 End: 07-23-2024 Patient encounter procedure [facility] Work Phone: Start: 05-03-2024 End: 05-03-2024 Patient encounter procedure [facility] Work Phone: Start: 04-26-2024 End: 04-26-2024 [facility] Work Phone: Start: 04-26-2024 End: 04-26-2024 Patient encounter procedure [facility] Work Phone: Start: 04-18-2024 Non-patient / Non-visit [facility] Work Phone: Start: 01-24-2024 Non-patient / Non-visit [facility] Physician [facility] Work Phone: Start: 01-23-2024 End: 01-23-2024 ambulatory [facility] Work Phone: Start: 01-23-2024 End: 01-23-2024 Patient encounter procedure [facility] [facility] Work Phone: Start: 12-11-2023 End: 12-11-2023 ambulatory [facility] Work Phone: Start: 12-11-2023 End: 12-11-2023 Patient encounter procedure [facility] Physician [facility] Work Phone: Start: 10-18-2023 End: 10-18-2023 ambulatory [facility] Work Phone: Start: 10-18-2023 End: 10-18-2023 Patient encounter procedure [facility] Physician [facility] Work Phone: Start: 07-31-2023 End: 07-31-2023 ambulatory Raad Mccrary Other [employer] Other Start: 07-31-2023 Telephone encounter Raad Mccrary [facility] Start: 07-31-2023 Non-patient / Non-visit [facility] Physician [facility] [employer] Work Phone: Start: 07-21-2023 End: 07-21-2023 ambulatory Raad Ball Other [employer] Other Start: 07-21-2023 Office outpatient visit 25 minutes Raad Mccrary [facility] Start: 06-29-2023 End: 06-29-2023 ambulatory Raad Ball Other [employer] Other Start: 06-29-2023 Telephone encounter Raad Ball [facility] Start: 05-29-2023 End: 05-29-2023 ambulatory Raad Ball Other [employer] Other Start: 05-29-2023 Telephone encounter Raad Mccrary [facility] Start: 04-28-2023 End: 04-28-2023 ambulatory Raad Ball Other [employer] Other Start: 04-28-2023 Telephone encounter Raad Ball [facility] Start: 04-20-2023 End: 04-20-2023 ambulatory Raad Ball Other [employer] Other Start: 04-20-2023 Office outpatient visit 25 minutes Raad Ball [facility] Start: 03-29-2023 End: 03-29-2023 ambulatory Raad Ball Other [employer] Other Start: 03-29-2023 Telephone encounter Raad Ball [facility] Start: 02-27-2023 End: 02-27-2023 ambulatory Raad Ball Other [employer] Other Start: 02-27-2023 Telephone encounter Raad Ball [facility] Start: 01-27-2023 End: 01-27-2023 ambulatory Raad Ball Other [employer] Other Start: 01-27-2023 Telephone encounter Raad Ball [facility] Start: 12-27-2022 End: 12-27-2022 ambulatory Raad Ball Other [employer] Other Start: 12-27-2022 Telephone encounter Raad Ball [facility] Start: 10-18-2022 End: 10-18-2022 ambulatory Raad Ball Other [employer] Other Start: 10-18-2022 Office outpatient visit 25 minutes Raad Ball [facility] Start: 09-26-2022 End: 09-26-2022 ambulatory Raad Ball Other [employer] Other Start: 09-26-2022 Telephone encounter Raad Ball [facility] Start: 08-25-2022 End: 08-25-2022 ambulatory Raad Ball Other [employer] Other Start: 08-25-2022 Telephone encounter Raad GILMORE [facility] Start: 08-16-2022 End: 08-16-2022 ambulatory Raad Mccrary Other [employer] Other Start: 08-16-2022 Office outpatient visit 15 minutes Raad Mccrary [facility] Start: 07-28-2022 End: 07-28-2022 ambulatory Raad Mccrary Other [employer] Other Start: 07-28-2022 Telephone encounter Raad GILMORE [facility] Start: 07-22-2022 End: 07-23-[address] RAAD MCCRARY Facility: Start: 07-21-2022 End: 07-21-2022 ambulatory Raad Mccrary Other [employer] Other Start: 07-21-2022 Office outpatient visit 25 minutes Raad Mccrary [facility] Start: 06-27-2022 End: 06-27-2022 ambulatory Raad Mccrary Other [employer] Other Start: 06-27-2022 Telephone encounter Raad GILMORE [facility] Start: 04-18-2022 End: 04-18-2022 ambulatory Raad Mccrary Facility:[facility] Start: 04-18-2022 End: 04-18-2022 Admission to same day surgery center DO Raad Ball Work Phone: [facility] Start: 04-18-2022 End: 04-18-2022 ambulatory DO Raad Ball Work Phone: [facility] Work Phone: Start: 04-14-2022 End: 04-14-2022 ambulatory Kp Tran Facility:[facility] Start: 04-14-2022 End: 04-14-2022 ambulatory DO Raad Ball Work Phone: [facility] Work Phone: Start: 04-14-2022 End: 04-14-2022 Patient encounter procedure DO Raad Mccrary Work Phone: [id number] Start: 04-07-2022 End: 04-08-[address] RAAD MCCRARY Facility:[facility] Start: 01-08-2022 End: 01-09-[address] RAAD MCCRARY Facility:[facility] Start: 08-09-[address] RAAD MCCRARY Facili ty:[facility] Start: 08-05-2021 End: 08-06-[address] RAAD MCCRARY Facility:[facility] Procedures Date Procedure Procedure Detail Performing Clinician Start: 04-18-2022 Colonoscopy DO Lainey Mccrary Work Phone: Start: 01-08-[address] NOE IN [facility] Comment on above: Performed By: #### [facility] [place] #### [facility] [address] [place] [address] Dr. Ramiro Bain SARS Antigen (LFIA) DO Igor Mccrary Work Phone: Plan of Treatment Date Care Activity Detail Author Start: 04-18-2022 [facility] Comprehensive metabo lic 2000 panel - Serum or Plasma [facility] Microalbumin [Mass/volume] in Urine [facility] Patient Education Hemorrhoids (D C) Diverticulosis (DC) [facility] Work Phone: [facility] Immunizations Immunization Date Immunization Notes Care Provider Fa cilireese 04-20-2023 influenza virus vaccine, unspecified formulation [facility] 04-20-2023 influenza, high dose seasonal, preservative-free Raad Mccrary Other [employer] [facility] [employer] Other 04-12-2022 influenza virus vaccine, unspecified formulation [facility] 04-12-2022 influenza, high dose seasonal, preservative-free Raad Mccrary Other [employer] Other 03-05-2020 influenza virus vaccine, split virus (incl. purified surface antigen) Raad Mccrary Other [employer] Other 03-05-2020 influenza virus vaccine, unspecified formulation [facility] Payers Date Payer Category Payer Self-pay 1961 Medicare [id number] [id number] 1961 Unknown [id number] 1955 Unknown [id number] 2.16.84 [id number] 1955 Unknown [id number] 2.16.84 [id number] 1955 Unknown [id number] 2.16.84 [id number] 1955 Unknown [id number] 2.16.84 [id number] 1955 Unknown [id number] 2.16.84 [id number] Unknown [id number] 2.16.8 [id number] Unknown [id number] [id number] Unknown [id number] Social History Date Type Detail Facility Tobacco smoking status NEIS Unknown if ever smoked [facility] Work Phone: Start: 1955 Sex Assigned At Male F [facility] Start: 04-18-2022 End: 04-18-2022 Tobacco smoking status NEIS Never smoked tobacco (finding) [facility] Sex Assigned At Sex Assigned At Bir th [place] [employer] Other Start: 04-26-2024 End: 07-23-2024 Sex Male (finding) [facility] Goals Date Patient Goal Desired Activity /State Clinical Notes 08-05-2021 to 04-26-2024 Note Date & Type Note Facility 04-26-2024 Evaluation note Diagnosis Onset Date Resolution Elevated cholesterol acute Nove mber 2023 8:23am Hypertension acute April h2023 8:23am Lumbar spondylosis acute Novemb er 2023 8:23am Opiate analgesic use agreement exists acute April 26, 2024 8:23am Overweight acute April 26, 2024 8:23am Type 2 diabetes mellitus with hyperglycemia acute April 8:23am Acute bronchitis due to other specified organisms acute May 03, 024 11:52am Hypertension acute April 11:52am Type 2 diabetes mellitus with hyperglycemia acute April 11:52am Anemia acute July 23, 2024 8:27am Elevated cholesterol acute Febr uary 2024 8:27am Hypertension acute July 8:27am Lumbar spondylosis acute Februa ry 2024 8:27am Opiate analgesic use agreement exists acute July 23, 2024 8:27am Overweight acute July 23, 2024 8:27am Type 2 diabetes mellitus with hyperglycemia acute July 8:27am [facility] Work Phone: 1(859) 271-358202-19-2024 Evaluation note* Encounter Date Diagnosis Assessment Notes Treatment Notes Treatment Clinical Notes Jul, Post-traumatic osteoarthritis of left ankle (ICD-10 - M19.172) [place] [employer] Other 02-09-2024 Evaluation note* Encounter Date Diagnosis Assessment Notes Treatment Notes Treatment Clinical Notes Jul, Controlled type 2 diabetes mellitus with hyperglycemia, without long-term current use of insulin (ICD-10 - E11.65) This patient is following a comprehensive diabetic treatment plan. They are checking their feet daily for calluses and nonhealing ulcers. They are being seen for yearly dilated eye examinations. Goals: SBP less than 130, LDL less than 100, FBS less than 140, A1C less than 7%. They are checking their BS daily, will which are reviewed at the office visit. Continue regular routine monitoring of A1C, Microalbumin, Dilated eye exam and Foot exam Jul, Primary hypertension (ICD-10 - I10) This patient is instructed to consume a healthy, low-fat, low-salt diet. They are also encouraged to continue exercise to achieve/maintain a normal BMI. Patient is instructed on home BP measurements: - rest for 5 minutes w/o talking.- positioned w/ feet on floor and arm supported.- average best 2/3 readings w/ goal < 135/85.- update office w/ home readings in 2 weeks. Will be adding Amlodipine if BP remains elevated on recheck Jul, Hypercholesterolemia (ICD-10 - E78.00) Instructed on diet and exercise. Intolerant to statins.Discussed the beneficial effects of lowering cholesterol in reducing the risk for cerebrovascular and cardiovascular disease. Jul, Overweight (ICD-10 - E66.3) This patient has been instructed on a low-fat, high-fiber diet. They are instructed to reduce calories, portion sizes and snacks. It is recommended that they exercise for 30 minutes, 3-5 times weekly. Jul, Muscle cramps at nig ht (ICD-10 - R25.2) Gentle stretching exercises prior to sleep. Continue Tizanidine at HS. Jul, Post-traumatic osteoarthritis of left ankle (ICD-10 - M19.172) This patient requires opiate use on a daily basis to control pain.This patient does not exhibit drug-seeking or aberrant behavior.This patient is able to continue with ADL, with an adequate quality of life, that they would not be able toachieve without the prescription pain medication.There has been no surgical treatment recommended for this condition.Use of non-opiate treatment should be continued, such as nonstrenuous and aquatic exercises.This patient has a pain management contract and they have been counseled on safe storage of the medication.They have been counseled on the risks of concomitant use with alcohol or sedating meds. PDMP is being followed and this patient's OARRS report is being monitored every 90 days. [employer] Other 01-18-2024 Evaluation note* Encounter Date Diagnosis Assessment Notes Treatment Notes Treatment Clinical Notes Jun, Post-traumatic osteoarthritis of left ankle (ICD-10 - M19.172) [employer] Other 12-18-2023 Evaluation note* Encounter Date Diagnosis Assessment Notes Treatment Notes Treatment Clinical Notes May, Post-traumatic osteoarthritis of left ankle (ICD-10 - M19.172) [employer] Other 11-17-2023 Evaluation note* Encounter Date Diagnosis Assessment Notes Treatment Notes Treatment Clinical Notes Apr, Post-traumatic osteoarthritis of left ankle (ICD-10 - M19.172) [employer] Other 11-09-2023 Evaluation note* Encounter Date Diagnosis Assessment Notes Treatment Notes Treatment Clinical Notes Apr, Controlled type 2 diabetes mellitus with hyperglycemia, without long-term current use of insulin (ICD-10 - E11.65) This patient is following a comprehensive diabetic treatment plan. They are checking their feet daily for calluses and nonhealing ulcers. They are being seen for yearly dilated eye examinations. Goals: SBP less than 130, LDL less than 100, FBS less than 140, A1C less than 7%. They are checking their BS daily, will which are reviewed at the office visit. Continue regular routine monitoring of A1C,] Microalbumin, Dilated eye exam and Foot exam Apr, Hypercholesterolemia (ICD-10 - E78.00) Instructed on diet and exercise with continued statin therapy.Discussed the beneficial effects of lowering cholesterol in reducing the risk for cerebrovascular and cardiovascular disease. Apr, Primary hypertension (ICD-10 - I10) This patient is instructed to consume a healthy, low-fat, low-salt diet. They are also encouraged to continue exercise to achieve/maintain a normal BMI. Apr, Muscle cramps at nig ht (ICD-10 - R25.2) Stretch and continue Zanaflex at HS. Started Mg supplements, which he feels is also helping Monitor for change in bowel consistency Apr, Post-traumatic osteoarthritis of left ankle (ICD-10 - M19.172) Requires opiates to continue w/ ADL and sleep. No aberrant behavior Apr, Overweight (ICD-10 - E66.3) This patient has been instructed on a low-fat, high-fiber diet. They are instructed to reduce calories, portion sizes and snacks. It is recommended that they exercise for 30 minutes, 3-5 times weekly. [employer] Other 10-18-2023 Evaluation note* Encounter Date Diagnosis Assessment Notes Treatment Notes Treatment Clinical Notes Mar, Benign prostatic hyperplasia with lower urinary tract symptoms (ICD-10 - N40.1) [employer] Other 09-18-2023 Evaluation note* Encounter Date Diagnosis Assessment Notes Treatment Notes Treatment Clinical Notes Feb, Benign prostatic hyperplasia with lower urinary tract symptoms (ICD-10 - N40.1) [employer] Other 08-18-2023 Evaluation note* Encounter Date Diagnosis Assessment Notes Treatment Notes Treatment Clinical Notes Jan, Benign prostatic hyperplasia with lower urinary tract symptoms (ICD-10 - N40.1) [employer] Other 05-09-2023 Evaluation note* Encounter Date Diagnosis Assessment Notes Treatment Notes Treatment Clinical Notes October, Essential hypertensi on (ICD-10 - I10) This patient is instructed to consume a healthy, low-fat, low-salt diet. They are also encouraged to continue exercise to achieve/maintain a normal BMI. Instructed to take at home - rest for 5min, feet on floor, arm resting on table and average 2/3 lowest readings - goal < 140/90 - call w/ results if remains elevated October, Controlled type 2 diabetes mellitus with hyperglycemia, without long-term current use of insulin (ICD-10 - E11.65) This patient is following a comprehensive diabetic treatment plan. They are checking their feet daily for calluses and nonhealing ulcers. They are being seen for yearly dilated eye examinations. Goals: SBP less than 130, LDL less than 100, FBS less than 140, AC and A1C less than 7%. They are checking their BS daily, will which are reviewed at the office visit. A1C: [ ] Microalbumin: [ ] Eye exam: [ ] Foot exam: [ ] October, Hypercholesterolemia (ICD-10 - E78.00) Instructed on diet and exercise with continued statin therapy.Discussed the beneficial effects of lowering cholesterol in reducing the risk for cerebrovascular and cardiovascular disease. October, Benign prostatic hyperplasia with lower urinary tract symptoms (ICD-10 - N40.1) Symptoms tolerable, yearly ROBYN and PSA October, Post-traumatic osteoarthritis of left ankle (ICD-10 - M19.172) Continue Mobic and use Hydrocodone as needed to continue ADL and sleep. October, Chronic use of opiat e drug for therapeutic purpose (ICD-10 - Z79.891) [employer] Other 04-17-2023 Evaluation note* Encounter Date Diagnosis Assessment Notes Treatment Notes Treatment Clinical Notes Sep, Post-traumatic osteoarthritis of left ankle (ICD-10 - M19.172) [employer] Other 03-16-2023 Evaluation note* Encounter Date Diagnosis Assessment Notes Treatment Notes Treatment Clinical Notes Aug, Post-traumatic osteoarthritis of left ankle (ICD-10 - M19.172) [employer] Other 03-07-2023 Evaluation note* Encounter Date Diagnosis Assessment Notes Treatment Notes Treatment Clinical Notes Aug, COVID (ICD-10 - U07.1) Aware of quaranting guidelines. Self isolate at home. - Cannot work - avoid contact with others - avoid pets - wipe counters, door knobs if touched - if can't avoid leaving home, must wear mask to protect others - need to stay isolated for 10 days from onset of symptoms or contact with COVID positive individual - to discontinue isolation must be 10 days AND must be without fever for 24 hours AND symptoms must be improving. Always wear a mask in public places. Aug, Essential hypertension (ICD-10 - I10) This patient is instructed to consume a healthy, low-fat, low-salt diet. They are also encouraged to continue exercise to achieve/maintain a normal BMI. [employer] Other 02-16-2023 Evaluation note* Encounter Date Diagnosis Assessment Notes Treatment Notes Treatment Clinical Notes Jul, Post-traumatic osteoarthritis of left ankle (ICD-10 - M19.172) [employer] Other 02-09-2023 Evaluation note* Encounter Date Diagnosis Assessment Notes Treatment Notes Treatment Clinical Notes Jul, Essential hypertensi on (ICD-10 - I10) This patient is instructed to consume a healthy, low-fat, low-salt diet. They are also encouraged to continue exercise to achieve/maintain a normal BMI. Jul, Hypercholesterolemia (ICD-10 - E78.00) Diet and exercise with continued statin therapy. Jul, Controlled type 2 diabetes mellitus with hyperglycemia, without long-term current use of insulin (ICD-10 - E11.65) This patient is following a comprehensive diabetic treatment plan. They are checking their feet daily for calluses and nonhealing ulcers. They are being seen for yearly dilated eye examinations. Goals: SBP less than 130, LDL less than 100, FBS less than 140, AC and A1C less than 7%. They are checking their BS daily, will which are reviewed at the office visit. Jul, Post-traumatic osteoarthritis of left ankle (ICD-10 - M19.172) This patient requires opiate use on a daily basis to control pain.This patient does not exhibit drug-seeking or aberrant behavior.This patient is able to continue with ADL, with an adequate quality of life, that they would not be able to achieve without the prescription pain medication.There has been no surgical treatment recommended for this condition.Use of nonopiate treatment should be continued, such as nonstrenuous and aquatic exercises.This patient has a pain management contract and they have been counseled on safe storage of the medication.They have been counseled on the risks of concomitant use with alcohol or sedating meds. PDMP is being followed and this patient's OARRS report is being monitored every 90 days. Jul, History of colon edgar yps (ICD-10 - Z86.010) Continue surveillance scopes, next due in 5 years [employer] Other [facility]-07-[facility] NotePROCEDURE: XR FEMUR LT, XR KNEE LT 3V COMPARISON: None. HISTORY: Pain in left leg FINDINGS: BONES:No acute fracture or dislocation of the femur or knee. Mild degenerative changes with marginal osteophyte formation SOFT TISSUES:Negative. No visible soft tissue swelling. EFFUSION:Small suprapatellar joint effusion OTHER: Pelvic calcifications, vascular phleboliths are favored IMPRESSION: Mild degenerative changes. No acute abnormality of the femur or knee Electronically authenticated by: DAGOBERTO BARTON Date: 2021-08-05 13:43[facility]02-24-2022 NotePROCEDURE: XR FEMUR LT, XR KNEE LT 3V COMPARISON: None. HISTORY: Pain in left leg FINDINGS: BONES:No acute fracture or dislocation of the femur or knee. Mild degenerative changes with marginal osteophyte formation SOFT TISSUES:Negative. No visible soft tissue swelling. EFFUSION:Small suprapatellar joint effusion OTHER: Pelvic calcifications, vascular phleboliths are favored IMPRESSION: Mild degenerative changes. No acute abnormality of the femur or knee Electronically authenticated by: DAGOBERTO BARTON Date: 2021-08-05 13:43[facility] information [facility] Work Phone: Evaluation note* Diagnosis Onset Date Resolution Status History of colon polyps acut e [facility] Work Phone: Evaluation noteNo InformationNort [employer] Other Evaluation noteNoStatwing [employer] Other Evaluation note* Diagnosis Onset Date Resolution Status Elevated cholesterol acute Hypertension acute Lumbar spondylosis acute Traumatic arthritis of left ankle acute Type 2 diabetes mellitus with hyperglycemia acute [facility] Work Phone: Evaluation note* Diagnosis Onset Date Resolution Status Elevated cholesterol acute Hypertension acute Lumbar spondylosis acute Opiate analgesic use agreement exists acute Type 2 diabetes mellitus with hyperglycemia acute Medicare annual wellness visit, subsequent noneactive Screening PSA (prostate specific antigen) noneactive [facility] Work Phone: Evaluation note* Diagnosis Onset Date Resolution Status COVID acute Elevated cholesterol acute Hypertension acute Elevated cholesterol acute Hypertension acute Lumbar spondylosis acute Opiate analgesic use agreement exists acute Type 2 diabetes mellitus with hyperglycemia acute Medicare annual wellness visit, subsequent noneactive Screening PSA (prostate specific antigen) noneactive [facility] Work Phone: Evaluation note* Diagnosis Onset Date Resolution Status Admit Date Elevated cholesterol acute Nove mber 2023 8:23am Hypertension acute April, 2023 8:23am Lumbar spondylosis acute Novemb er 2023 8:23am Opiate analgesic use agreeme nt exists acute April 26, 8:23am Type 2 diabetes mellitus wit h hyperglycemia acute April 26 8:23am [facility] Work Phone: History general Narrative - Reported* Type Description Date Medical History Anemia, unspecified Medical History Hypercholesterolemia Medical History Post-traumatic osteoarthritis of left ankle Medical History Essential hypertension Medical History Controlled type 2 di abetes mellitus with hyperglycemia, without long-term current use of insulin Medical History Leg pain, anterior, left Medical History Adenomatous polyp of descending colon Medical History Benign prostatic hyp erplasia with lower urinary tract symptoms Medical History Allergic contact dermatitis due to plant Medical History Chronic pain due to injury Medical History Chronic prescription opiate use Surgical History COLONOSCOPY 2016, 2021 Surgical History UMBILICAL HERNIORRHAPY 2013 Surgical History REMOVAL OF MESH 2015 Hospitalization History SEE SURGICAL [employer] [facility] [employer] Other History general Narrative - Reported* Type Description Date Medical History Anemia, unspecified Medical History Hypercholesterolemia Medical History Post-traumatic osteoarthritis of left ankle Medical History Essential hypertension Medical History Controlled type 2 di abetes mellitus with hyperglycemia, without long-term current use of insulin Medical History Leg pain, anterior, left Medical History Adenomatous polyp of descending colon Medical History Benign prostatic hyp erplasia with lower urinary tract symptoms Medical History Allergic contact dermatitis due to plant Medical History Chronic pain due to injury Medical History Chronic prescription opiate use Surgical History UMBILICAL HERNIORRHAPY 2013 Surgical History REMOVAL OF MESH 2015 Surgical History Colonoscopy 2017 Surgical History Colonoscopy (repeat 2026) 2021 Hospitalization History SEE SURGICAL [employer] Other Hospital Discharge instructions Additional Instructions DISCHARGE INSTRUCTIONS FOR ENDOSCOPY FOR COLONOSCOPY: -Expect a gassy or full feeling after a colonoscopy. Report any NEW abdominal pain or vomiting. -Watch for rectal bleeding if you have a polyp removed. You may have oozing, but notify the doctor if you pass clots. -Avoid aspirin for 2 days IF a polyp is removed. -It is important to keep your appointments for follow up examinations because polyps can grow back. FOR CARRIZALES/EGD/ERCP/PEG: -Your throat may feel sore today from the scope that the doctor passed through your throat to visualize your stomach. Take a throat lozenge or suck on ice to ease the discomfort. -Do NOT smoke. -You may notice some streaks of blood in your sputum if the doctor has taken a biopsy. Notify the doctor if you cough up large amounts of blood. -Expect a gassy or full feeling after esophagoscopy. Report any persistent pain or vomiting. -Take it easy today. You need not stay in bed, but avoid strenuous activities such as jogging. FOR SEDATION FOR 24 HOURS: -NO driving -Do NOT operate machinery such as power tools, lawn mowers, snow blowers, sewing machines, etc. -Avoid alcoholic beverages and drugs for allergies, nerves, or sleep. -Do NOT stay alone. Do NOT leave your child unattended. -Do NOT make important personal or business decisions or sign any legal documents. -Eat solid foods and drink liquids in smaller amounts than usual until normal appetite returns. If you should experience an upset stomach, liquids high in sugar content (soda, Girish-aid, non-acid juices) are recommended. -You can resume normal activities tomorrow. FOLLOW UP Please call the office and make a follow up appointment to see me as needed. Repeat colonoscopy in 5 years -Notify the doctor if you have any problems. -Office number [phone] Work Phone: Chief Complaint and Reason for Visit Chief Complaint Hx of Colon Polyps Chief Complaint Hx of Colon Polyps Hx of Colon Polyps Reason for Visit History of colon edgar yps Chief Complaint Amb Documentation 3 MONTH CHECK UP Reason for Visit Elevated cholesterol Hypertension Lumbar spondylosis Traumatic arthritis of left ankle Type 2 diabetes mellitus with hyperglycemia Chief Complaint annual wellness Reason for Visit Elevated cholesterol Hypertension Lumbar spondylosis Opiate analgesic use agreement exists Type 2 diabetes mellitus with hyperglycemia Medicare annual wellness visit, subsequent Screening PSA (prostate specific antigen) Chief Complaint COVID + annual wellness Reason for Visit COVID Elevated cholesterol Hypertension Elevated cholesterol Hypertension Lumbar spondylosis Opiate analgesic use agreement exists Type 2 diabetes mellitus with hyperglycemia Medicare annual wellness visit, subsequent Screening PSA (prostate specific antigen) Chief Complaint Admit Date CC Adult Risk Stratification April 10:47am 3 month f/u April 26, 2024 8:23am Reason for Visit Admit Date Elevated cholesterol April 26, 2024 8:23am Hypertension April 26, 2024 8:23am Lumbar spondylosis April 26, 2024 8:23am Opiate analgesic use agreement exists No vember 2023 8:23am Type 2 diabetes mellitus with hyperglyce king April 26, 2024 8:23am Chief Complaint Admit Date 3 month f/u April 26, 2024 8:23am [phone] cough, congestion, COVID - May 03, 2024 11:52am 3 month f/u July 23, 2024 8:27am Reason for Visit Admit Date Elevated cholesterol April 26, 2024 8:23am Hypertension April 26, 2024 8:23am Lumbar spondylosis April 26, 2024 8:23am Opiate analgesic use agreement exists No vember 2023 8:23am Overweight April 26, 2024 8:23am Type 2 diabetes mellitus with hyperglyce king April 26, 2024 8:23am Acute bronchitis due to other specified organisms May 03, 2024 11:52am Hypertension May 03, 2024 11:52am Type 2 diabetes mellitus with hyperglyce king May 03, 2024 11:52am Anemia July 23, 2024 8:27am Elevated cholesterol July 23, 2024 8:27am Hypertension July 23, 2024 8:27am Lumbar spondylosis July 23, 2024 8:27am Opiate analgesic use agreement exists Fe bruary 2024 8:27am Overweight July 23, 2024 8:27am Type 2 diabetes mellitus with hyperglyce king July 23, 2024 8:27am Advance Directives Advance Directive Response Recorded Date/ Time Advance Directives No April 12, 2022 1:51pm Advance Directive Response Recorded Date/ Time Advance Directives No April 12, 2022 12:51pm Summary Purpose Family History Relationship Condition Age at Onset Recorded Date/T kassandra father Malignant neoplasm of colon Unknown Relationship Condition Age at Onset Recorded Date/T kassandra father Malignant neoplasm of colon Unknown father Malignant neoplasm Unknown Not Specified Heart disease Unknown Relationship Condition Age at Onset Recorded Date/T kassandra father Malignant neoplasm of colon Unknown father Malignant neoplasm Unknown mother Heart disease Unknown Additional Source Comments Care Teams (unrecognized sec tion and content) Team Status: Active Member Role Status Dates Raad Mccrary DO Primary Care Provider Active Team Status: Inactive Member Role Status Dates Raad Mccrary DO Primary Care Provide r, Attending Provider Active Start: April 26, 2024 End: April 26, 2024 Team Status: Inactive Member Role Status Dates Raad Mccrary DO Primary Care Provide r, Attending Provider Active Start: May 03, 2024 End: May 03, 2024 Team Status: Inactive Member Role Status Dates Raad Mccrary DO Primary Care Provide r, Attending Provider Active Start: July 23, 2024 End: July 23, 2024 Team Status: Active Member Role Status Dates Raad Mccrary , DO Primary Care Provider Active Team Status: Active Member Role Status Dates Raad Mccrary , DO Primary Care Provide r, Attending Provider Active Start: April 18, 2024 Team Status: Inactive Member Role Status Dates Raad Mccrary , DO Primary Care Provide r, Attending Provider Active Start: April 26, 2024 End: April 26, 2024 Team Status: Inactive Member Role Status Dates Raad Mccrary , DO Primary Care Provide r, Attending Provider Active Start: January 23, 2024 End: January 23, 2024 Team Status: Inactive Member Role Status Dates Kp Tran MD Attending Provider Active Raad Wes , DO Primary Care Provider Active Team Status: Active Member Role Status Dates Raad Wes , DO Primary Care Provider Active Start: July 31, 2023 TERRENCE Knight Attending Provider Active Start : July 31, 2023 Team Status: Inactive Member Role Status Dates Raad Mccrary , DO Primary Care Provide r, Attending Provider Active Start: October 18, 2023 End: October 18, 2023 Team Status: Inactive Member Role Status Dates Raad Mccrary , DO Primary Care Provide r, Attending Provider Active Start: December 11, 2023 End: December 11, 2023 Team Status: Active Member Role Status Dates Raad Mccrary , DO Primary Care Provide r, Attending Provider Active Start: January 24, 2024 Team Status: Inactive Member Role Status Dates Raad Mccrary , DO Primary Care Provide r, Attending Provider Active Start: May 03, 2024 End: May 03, 2024 Team Status: Inactive Member Role Status Dates Raad Mccrary , DO Primary Care Provide r, Attending Provider Active Start: July 23, 2024 End: July 23, 2024 Goals (unrecognized section and content) Goals may be documented in a n alternate sectionNo InformationNo InformationNo InformationNo InformationNo InformationNo InformationNo InformationNo InformationNo InformationNo InformationNo InformationNo InformationNo InformationNo InformationNo InformationNo InformationNo InformationGoals may be documented in an alternate sectionGoals may be documented in an alternate sectionGoals may be documented in an alternate sectionGoals may be documented in an alternate sectionGoals may be documented in an alternate section (unrecognized sect ion and content) No Status Records FoundNo Status Records Found INFORMATION SOURCE (unrecogn ized section and content) DATE CREATED AUTHOR 04/22/2022 [facility] DATE CREATED AUTHOR AUTHOR'S JASON ATION 07/29/2022 [facility] REASON FOR VISIT (unrecogniz ed section and content) prescription refillPRESCRIPT ION [id number] COVID +3 month Follow upRefillrefill3 month Follow upRefillRefillRefill3 month Follow uprefillrefillrefill3 month Follow upNo InformationNo Information FOR RECORDS PERTAINING TO PATIENTS WHO ARE OR HAVE BEEN ENROLLED IN A CHEMICAL DEPENDENCY/SUBSTANCEABUSE PROGRAM, SOME INFORMATION MAY BE OMITTED. This clinical summary was aggregated from multiple sources. Caution should be exercised in using it in the provision of clinical care. This summary normalizes information from multiple sources, and as a consequence, information in this document may materially change the coding, format and clinical context of patient data. In addition, data may be omitted in some cases. CLINICAL DECISIONS SHOULD BE BASED ON THE PRIMARY CLINICAL RECORDS. [employer] [facility]. provides no warranty or guarantee of the accuracy or completeness of information in this document.
[2024-07-24 07:29] LABS: Basophils Absolute Auto 0.1 10^3/uL (0.0-0.1); Basophils Percent Auto 1.3 % (0.2-2.0); Eosinophils Absolute Auto 0.2 10^3/uL (0.0-0.7); Eosinophils Percent Auto 3.8 % (0.9-7.0); Hematocrit 42.9 % (42.0-54.0); Immature Granulocytes Abs Auto 0.02 10^3/uL (0.00-0.03); Immature Granulocytes Pct Auto 0.3 % (0.0-0.5); Lymphocytes Absolute Auto 1.5 10^3/uL (1.2-3.8); Lymphocytes Percent Auto 24.4 % (20.5-60.0); Mean Corpuscular HGB Conc 32.6 g/dL (29.9-35.2); Mean Corpuscular Volume 92.1 fL (80.0-94.0); Mean Platelet Volume 9.4 fL (9.5-13.5); Monocytes Absolute Auto 0.5 10^3/uL (0.3-0.8); Monocytes Percent Auto 8.3 % (1.7-12.0); Neutrophils Absolute Auto 3.9 10^3/uL (1.4-6.5); Neutrophils Percent Auto 61.9 % (43.0-75.0); Platelet Count 249 10^3/uL (150-450); Red Blood Count 4.66 10^6/uL (4.70-6.10); Red Cell Distribution Width 13.1 % (11.0-15.0); Reticulocyte Pct Auto 1.43 % (0.60-3.10); White Blood Count 6.3 10^3/uL (4.0-11.0)
[2024-07-24 08:16] LABS: Percent Iron Saturation 21.8 %
[2024-07-25 04:09] LABS: Vitamin B12 301 pg/mL (232-1245)
== END 2024-07-24 07:07 | disposition home or self-care (01) ==
LOC: LAB 07:07
PROVIDERS: PCP Internal Medicine; Visit Provider Internal Medicine
DX: D64.9 Anemia, unspecified (principal)
CPT/HCPCS: 36415; 82607; 82728; 82746; 83540; 83550; 85025; 85045

== ENCOUNTER 2025-02-07 07:23 | Outpatient (OUT) | payer MEDICARE, OTHER, SELFPAY ==
--- OUTSIDE RECORDS SUMMARY | 2025-02-07 07:25 | XMS_ITS | CCD ---
Author Organization [facility] Care Team Providers Care Metalizer Name Role Phone MD Kp Tran Attending Provider DO Raad Mccrary Primary Care Provider Raad Mccrary Primary Care Unavailable Kp Tran Admitting Unavailabl Kp Arrington Attending Unavailabl e Kp Tran Attending Unavailabl e Raad Mccrary Primary Care Unavailable Kp Tran Admitting UnavailMD Kp Guo Attending Provider DO Raad Mccrary Primary Care Provider [phone] WES, DR HSU Admitting Unavailable WES, DR HSU Primary Care Unavailable WES, DR HSU Consulting Unavailable WES, DR HSU Attending Unavailable WES, DR HSU Admitting Unavailable WSE, DR HSU Primary Care Unavailable WES, DR HSU Attending Unavailable BALL, DR HSU Admitting Unavailable WES, DR HSU Primary Care Unavailable WES, DR HSU Consulting Unavailable WES, DR HSU Attending Unavailable WEST, DR DAGOBERTO Kaufman Consulting Unavailable WES, DR HSU Primary Care Unavailable WES, DR HSU Consulting Unavailable WES, DR HSU Attending Unavailable BALL, DR HSU Admitting Unavailable BALL, DR HSU Primary Care Unavailable WES, DR HSU Consulting Unavailable WES, DR HSU Attending Unavailable BALL, DR HSU Admitting Unavailable Wes, Raad Unavailable Raad Mccrary DO Primary Care Provider [phone] Raad Mccrary DO Attending Provider [phone] Medications Current Medications Medication Drug Class(es) Dates Sig (Normalized) Sig (Original) acetaminophen 325 mg / HYDROcodone bitartrate 5 mg oral tablet (20 sources) Opioid Agonist Start: 02-06-2025 take 1 tablet by mouth every six hours as needed for pain Hydrocodone-Aceta minophen 5-325 mg tablet Active 1 TAB PO Q6H as needed for Pain 120 30 February 06, 2025 Complies with drug therapy Start: 08-28-2023 End: 02-06-2025 take 1 tablet by mouth every six hours as needed for pain Hydrocodone-Acetaminophen 5-325 mg table t Discontinued 1 TAB PO Q6H as needed for Pain 120 May 03, 2024 June 03, 2024 1:49pm start 03/01 Start: 08-28-2023 End: 08-28-2023 take 1 tablet [...] 30 July 31, 2023 August 28, 2023 1:27pm amLODIPine 5 mg oral tablet (1 source) Dihydropyridine Calcium Channel Sydni Start: 02-06-2025 take 1 tablet by mouth once daily Amlodipine 5 mg tablet Active 5 MG PO Daily February 06, 2025 12:00am Complies with drug therapy aspirin 81 mg oral tablet (20 sources) Platelet Aggregation Inhibitor, Nonsteroidal Anti-inflammatory Drug Start: 04-18-2022 take 1 capsule by mouth once daily Aspirin 81 mg Capsule Active 81 MG PO Daily April 18, 2022 1:00am Complies with drug therapy take 1 tablet by deborah th every twenty-four hours Aspirin 81 MG 1 tablet Orally Once a day Active atorvastatin 10 mg oral tablet (20 sources) HMG-CoA Reductase Inhibitor Start: 04-18-2022 take 4 tablets by mouth once daily Atorvastatin 10 mg tablet Active 40 MG PO Daily April 18, 2022 1:00am Complies with drug therapy Start: 04-18-2022 take 40 mg by mouth once daily Atorvastatin Active 40 MG PO Daily April 18, 2022 1:00am take 1 tablet by deborah th in the evening Atorvastatin Calcium 10 MG TAKE 1 TABLET BY MOUTH IN THE EVENING Not-Taking/PRN benazepril hydrochloride 20 mg oral tablet (20 sources) Angiotensin Converting Enzyme Inhibitor Start: 03-14-2024 take 1 tablet by mouth once daily Benazepril 20 mg tablet Active 0 .ROUTE .COMPLEX March 14, 2024 8:42am TAKE 1 TABLET BY MOUTH EVERY DAY Complies with drug therapy Start: 04-18-2022 End: 03-14-2024 take 1 tablet by mouth once daily Benazepril 20 mg tablet Discontinued 20 MG PO Daily April 18, 2022 1:00am March 14, 2024 8:42am meloxicam 7.5 mg oral tablet (20 sources) Nonsteroidal Anti-inflammatory Drug Start: 10-02-2023 End: 09-06-2024 take 1 tablet by mouth once daily at mealtime Meloxicam 7.5 mg tablet Active 0 .ROUTE .COMPLEX September 06, 2024 6:51am TAKE 1 TABLET BY MOUTH EVERY DAY WITH FOOD Complies with drug therapy Start: 04-18-2022 End: 10-02-2023 take 1 tablet by mouth once daily Meloxicam 7.5 mg tablet Discontinued 7.5 MG PO Daily April 18, 2022 1:00am October 02, 2023 1:29pm metFORMIN hydrochloride 500 mg oral tablet (20 sources) Biguanide Start: 02-23-2024 End: 01-27-2025 Metformin 500 mg tablet Active 0 .ROUTE .COMPLEX 180 January 27, 2025 7:41am TAKE 1 TABLET BEFORE BREAKFAST AND EVENING MEAL Complies with drug therapy Start: 02-23-2024 Metformin Acti ve 0 .ROUTE .COMPLEX 180 February 23, 2024 12:51pm TAKE 1 TABLET BEFORE BKFST AND EVENING MEAL 90 Start: 04-18-2022 End: 02-23-2024 take 1 tablet by mouth once daily Metformin 500 mg tablet Discontinued 500 MG PO Daily April 18, 2022 1:00am February 23, 2024 12:51pm take 1 tablet by deborah th every twelve hours metFORMIN HCl 500 MG 1 tablet with a meal Orally twice a day Active tiZANidine 4 mg oral tablet (20 sources) Central alpha-2 Adrenergic Agonist Start: 12-17-2024 take 1 tablet by mouth once daily at bedtime Tizanidine 4 mg tablet Active 0 .ROUTE .COMPLEX 90 December 17, 2024 7:40am TAKE 1 TABLET BY MOUTH DAILY AT BEDTIME Complies with drug therapy Start: 10-17-2023 End: 12-17-2024 take 1 tablet by mouth once daily at bedtime Tizanidine 4 mg tablet Discontinued 4 MG PO Daily at bedtime January 18, 2024 4:08pm December 17, 2024 7:40am Start: 01-18-2023 tiZANidine HCl 4 MG 1/2 - 1 Orally q HS for 30 days Jan, Active Completed/Discontinued Medications Medication Drug Class(es) Dates Sig (Normalized) Sig (Original) azithromycin 250 mg oral tablet (3 sources) Macrolide Antimicrobial Start: 05-03-2024 End: 02-06-2025 Azithromycin 250 mg tablet Discontinued 250 MG PO .COMPLEX 6 5 May 03, 2024 1:00am February 06, 2025 8:39am 2 tabs on first day followed by 1 tab on days 2-5 Nirmatrelvir-Ritona vir (1 source) Start: 12-11-2023 End: 01-23-2024 take 2 tablets by mouth once, then take 1 tablet by mouth twice daily Nirmatrelvir-Riton avir (Paxlovid) 300 mg (150 mg x 2)-100 mg tablets,dose pack Discontinued 0 PO per package directions 08 11December 11, 2023 12:00am January 23, 2024 9:30am take TWO 150 mg tablets of nirmatrelvir with ONE 100 mg tablet of ritonavir twice daily for 5 days orally per package directions; Nirmatrelvir-Ritona vir (Paxlovid) 300 mg (150 mg x 2)-100 mg tablets,dose pack (5 sources) Start: 12-11-2023 End: 01-23-2024 take 2 tablets by mouth once, then take 1 tablet by mouth twice daily Nirmatrelvir-Riton avir (Paxlovid) 300 mg (150 mg [...] Start: 08-16-2022 take 3 tablets by mo ut every twelve hours Paxlovid (300/100) 20 x 150 MG & 10 x 100MG 3 tablets Orally Twice a day for 5 day(s) Aug, Not-Taking Start: 08-16-2022 take 3 tablets by [facility] every twelve hours Paxlovid (300/100) 20 x 150 MG & 10 x 100MG 3 tablets Orally Twice a day for 5 day(s) Aug, Active Problems Active Problems Problem Classification Problem Date Documented Date Episodic/Chronic Acute bronchitis (4 sources) Acute infective bronchitis; Translations: [Acute bronchitis due to other specified organisms] 05-03-2024 Episodic Allergic reactions (6 sources) Allergic contact dermatitis due to plants, except food; Translations: [Allergic contact dermatitis due to plants, except food] Episodic Deficiency and other anemia (5 sources) Anemia, unspecified; Translations: [Anemia, unspecified] Onset: 04-07-2022 Episodic Deficiency and other anemia (9 sources) Anemia; Translations: [Anemia, unspecified] 07-23-2024 Episodic [...] symptoms] Chronic Joint disorders and dislocations; trauma-related (9 sources) 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; Translations: [Traumatic arthropathy, left ankle and foot] 07-31-2023 Chronic Nutritional deficiencies (4 sources) Folic acid deficiency; Translations: [Deficiency of other specified B group vitamins] 11-04-2024 Episodic Osteoarthritis (20 sources) Localized, secondary osteoarthritis of the ankle and/or foot; 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, left ankle and foot] Chronic Other aftercare (6 sources) High risk drug monitoring status; Translations: [predatory animal exterminator (current) use of opiate analgesic] Episodic Other aftercare (12 sources) Long-term current use of drug therapy; Translations: [predatory animal exterminator (current) use of opiate analgesic] Episodic Other aftercare (7 sources) custodial (current) use of opiate analgesic; Translations: [Long-term (current) use of other medications] Episodic Other aftercare (7 sources) Drug therapy finding; Translations: [custodial (current) use of opiate analgesic] 10-18-2023 Episodic [...] Chronic Other nutritional; endocrine; and metabolic disorders (5 sources) Overweight; Translations: [Overweight] Episodic Other nutritional; endocrine; and metabolic disorders (7 sources) Overweight; Translations: [Overweight] 10-18-2023 Episodic Other screening for suspected conditions (not mental disorders or infectious disease) (8 sources) Encounter for screening for malignant neoplasm of prostate; Translations: [Screening for malignant neoplasms of prostate] Onset: 01-08-2022 Episodic Spondylosis; intervertebral disc disorders; other back problems (15 sources) Lumbar spondylosis; Translations: [Spondylosis without myelopathy or radiculopathy, lumbar region] 10-16-2023 Chronic Unclassified (1 source) Encounter for screening for malignant neoplasm of colon; Translations: [Encounter for screening for malignant neoplasm of colon] Onset: 04-18-2022 Unclassified (1 source) Encounter for preprocedural laboratory examination; Translations: [Encounter for preprocedural laboratory examination] Onset: 04-14-2022 Viral infection (7 sources) Disease caused by 2019-nCoV; Translations: [COVID-19] 12-11-2023 Episodic Past or Other Problems Problem Classification Problem Date Documented Da te Episodic/Chronic Other aftercare (1 source) Other remote computer terminal operator (current) drug therapy; Translations: [OTH LONGTERM CURRENT DRUG THERAPY] Onset: 01-13-2022 Episodic Other connective tissue disease (4 sources) Pain in left leg; Translations: [PAIN IN LEFT LEG] Onset: 08-05-2021 Episodic Viral infection (1 source) COVID-19 Results Test Name Value Interpretation Reference Range Facility Basophils Auto (Bld) [#/Vol] on 01-24-2024 Basophils (Bld) [#/Vol] 0.1 10 3/uL 0.0-0.1 [facility] Basophils/100 WBC Auto (Bld) on 01-24-2024 Basophils/100 WBC (Bld) 1.2 % 0.2-2.0 [facility] Cholesterol in LDL Calc [Mas s/Vol]on 01-24-2024 Cholesterol in LDL [Mass/Vol] 115.6 mg/dL [facility] Comment on above: <100 mg/dl [id number] 0-129 mg/dl NEAR OR ABOVE [id number] mg/dl BORDERLINE [id number] mg/dl HIGH>190 mg/dl VERY HIGH Cholesterol in VLDL Calc [Ma ss/Vol]on 01-24-2024 Cholesterol in VLDL [Mass/Vol] 23.4 mg/dL [facility] Eosinophils/100 WBC Auto (Bl d)on 01-24-2024 Eosinophils/100 WBC (Bld) 3.3 % 0.9-7.0 [facility] Erythrocyte distribution wid th Auto (RBC) [Ratio]on 01-24-2024 Erythrocyte distribution width (RBC) [Ratio] 13.2 % 11.0-15.0 [facility] Estimated glomerular filtrat ion rate (GFR) non- Americanon 01-24-2024 GFR/1.73 sq M.predicted among non-blacks MDRD (S/P/Bld) [Vol rate/Area] mL/min/{1.73_m2} >=60 [facility] Globulin Calc (S) [Mass/Vol] on 01-24-2024 Globulin (S) [Mass/Vol] 2.8 g/dL [facility] Glucose mean value [Mass/vol ume] in Blood Estimated from glycated hemoglobinon 01-24-2024 Average glucose Estimated from glycated hemoglobin (Bld) [Mass/Vol] 117 mg/dL [facility] Hematocrit Auto (Bld) [Volum e fraction]on 01-24-2024 Hematocrit (Bld) [Volume fraction] 41.4 % Low 42.0-54.0 [facility] Hemoglobin [Mass/volume] in Bloodon 01-24-2024 Hemoglobin (Bld) [Mass/Vol] 13.6 g/dL Low 14.0-18.0 [facility] Laboratory - Chemistry and C hemistry - challengeon 01-24-2024 Albumin [Mass/Vol] 3.6 g/dL 3.4-5.0 [facility] ALP [Catalytic activity/Vol] 59 U/L 46-116 [facility] ALT [Catalytic activity/Vol] 27 U/L 16-63 [facility] AST [Catalytic activity/Vol] 18 U/L 15-37 [facility] Bilirubin [Mass/Vol] 0.3 mg/dL 0.2-1.0 [facility] Calcium [Mass/Vol] 9.0 mg/dL 8.5-10.1 [facility] Chloride [Moles/Vol] 105 mmol/L 98-107 [facility] Cholesterol [Mass/Vol] 187 mg/dL <=200 [facility] Cholesterol in HDL [Mass/Vol] 48 mg/dL 40-60 [facility] Comment on above: > or =60 mg/dl - LOW CARDIOVASCULAR RISK<40 mg/dl - HIGH CARDIOVASCULAR RISK CO2 [Moles/Vol] 26.1 mmol/L 21.0-32.0 [facility] Creatinine [Mass/Vol] 1.12 mg/dL 0.70-1.30 [facility] GFR/1.73 sq M.predicted MDRD (S/P/Bld) [Vol rate/Area] mL/min/{1.73_m2} >=60 [facility] Glucose [Mass/Vol] 101 mg/dL 74-106 [facility] Potassium [Moles/Vol] 4.8 mmol/L 3.5-5.1 [facility] Protein [Mass/Vol] 6.4 g/dL 6.4-8.2 [facility] Sodium [Moles/Vol] 139 mmol/L 136-145 [facility] Triglyceride [Mass/Vol] 117 mg/dL <=150 [facility] Urea nitrogen [Mass/Vol] 21.0 mg/dL High 7.0-18.0 [facility] Urea nitrogen/Creatinine [Mass ratio] 18.8 mg/mg [facility] Laboratory - Hematology and Cell countson 01-24-2024 HbA1c (Bld) [Mass fraction] 5.7 % 4.5-6.2 [facility] Comment on above: ADA RECOMMENDED LIMI T 4.0 - 6.0ADA THERAPEUTIC TARGET < 7.0ACTION SUGGESTED> 7.0 Immature granulocytes/100 WBC (Bld) 0.5 % 0.0-0.5 [facility] Leukocytes [#/volume] correc rehan for nucleated erythrocytes in Blood by Automated counon 01-24-2024 WBC corrected for nucl RBC Auto (Bld) [#/Vol] 5.8 10 3/uL 4.0-11.0 [facility] Lymphocytes Auto (Bld) [#/Vo l]on 01-24-2024 Lymphocytes (Bld) [#/Vol] 1.3 10 3/uL 1.2-3.8 [facility] Lymphocytes/100 WBC Auto (Bl d)on 01-24-2024 Lymphocytes/100 WBC (Bld) 22.3 % 20.5-60.0 [facility] MCH Auto (RBC) [Entitic mass ]on 01-24-2024 MCH (RBC) [Entitic mass] 29.8 pg 25.9-34.0 [facility] MCHC Auto (RBC) [Mass/Vol]on 01-24-2024 MCHC (RBC) [Mass/Vol] 32.9 g/dL 29.9-35.2 [facility] MCV Auto (RBC) [Entitic vol] on 01-24-2024 MCV (RBC) [Entitic vol] 90.8 fL 80.0-94.0 [facility] Microalbumin [Mass/volume] i n Urineon 01-24-2024 Albumin DL <= 20 mg/L (U) [Mass/Vol] mg/dL <=30.0 [facility] Monocytes Auto (Bld) [#/Vol] on 01-24-2024 Monocytes (Bld) [#/Vol] 0.7 10 3/uL 0.3-0.8 [facility] Monocytes/100 WBC Auto (Bld) on 01-24-2024 Monocytes/100 WBC (Bld) 12.0 % 1.7-12.0 [facility] Neutrophils Auto (Bld) [#/Vo l]on 01-24-2024 Neutrophils (Bld) [#/Vol] 3.5 10 3/uL 1.4-6.5 [facility] Neutrophils/100 WBC Auto (Bl d)on 01-24-2024 Neutrophils/100 WBC (Bld) 60.7 % 43.0-75.0 [facility] No Panel Informationon 01-23 Eosinophils # (Auto) 0.2 10 3/uL 0.0-0.7 [facility] Immature Granulocyte # (Auto) 0.03 10 3/uL 0.00-0.03 [facility] Prostate Specific Antigen Screen 1.00 ng/mL <=4.00 [facility] Platelet mean volume Auto (B ld) [Entitic vol]on 01-24-2024 Platelet mean volume (Bld) [Entitic vol] 10.2 fL 9.5-13.5 [facility] Platelets Auto (Bld) [#/Vol] on 01-24-2024 Platelets (Bld) [#/Vol] 254 10 3/uL 150-450 [facility] RBC Auto (Bld) [#/Vol]on RBC (Bld) [#/Vol] 4.56 10 6/uL Low 4.70-6.10 [facility] Serum or plasma albumin/glob ulin mass ratioon 01-24-2024 Albumin/Globulin [Mass ratio] 1.3 {ratio} [facility] Serum or plasma anion gap de terminationon 01-24-2024 Anion gap [Moles/Vol] 12.7 mmol[facility] Serum or plasma total choles terol/high density lipoprotein (HDL) cholesterol mass naye 01-24-2024 Cholesterol.total/Chol esterol in HDL [Mass ratio] 3.9 {ratio} [facility] Comment on above: 3.3 - 4.4 LOW RISK4. 4 - 7.1 AVERAGE RISK7.1 - 11.0 MODERATE RISK>11.0 HIGH RISK A1C with Estimated Average G luon 07-22-2022 A1C with Estimated Average Glu [employer] Other GLYCOHEMOGLOBIN A1Con 2022 ADA RECOMMENDATION SEE BELOW Normal [facility] Comment on above: Result Comment: ADA RECOMMENDED LIMIT 4.0 - 6.0 ADA THERAPEUTIC TARGET < 7.0 ACTION SUGGESTED > 7.0 Performed By: #### A 1C #### [facility] [address] [address] [address] Ramiro Bain Glucose [Mass/Vol] 128 mg/dL Normal [facility] Comment on above: Performed By: #### A 1C #### [facility] [address] [address] [address] Ramiro Bain HbA1c (Bld) [Mass fraction] 6.1 % Normal 4.5-6.2 [facility] Comment on above: Performed By: #### A 1C #### [facility] [address] [address] [address] Ramiro Bain Glucose Glucometer ([facility]) [M ass/Vol]Ordered By: Kp Tran on 04-18-2022 Glucose [Mass/Vol] 104 mg/dL [facility] Comment on above: Random Glucose Refer ence Range is dependent on time and content of last meal. Glucose of more than 200 mg/dL in a nonstressed, ambulatory subject supports the diagnosis of Diabetes Mellitus. Glucose Poct Glucometerson 1 06-18-2021 Glucose [Mass/Vol] 104 mg/dL Normal [facility] Comment on above: Result Comment: [place] Glucose Reference Range is dependent on time and content of last meal. Glucose of more than 200 mg/dL in a nonstressed, ambulatory subject supports the diagnosis of Diabetes Mellitus. PERFORMED BY: [address] [id number] [place] [address] PATHOLOGIST FACILITIES LOCATOR CELINE JOSUE M.D. Performed By: #### G [...] developed and its performance characteristic determined by [employer] and validated at [facility]. This test has not been FDA [...] for SARS Antigen by [employer] PERFORMED BY: [place] [address] PATHOLOGIST FACILITIES LOCATOR CELINE JOSUE M.D. [facility] Comment on above: Performed By: #### S OFKRISTEN, COVID-19 JACKY #### [address] COVID-19 SOFIAOrdered By: Meggan Tran on 04-14-2022 SARS-CoV+SARS-CoV-2 (COVID-19) Ag IA.rapid Ql (Resp) Negative Negative [facility] Comment on above: This is a duplicate Jacky SARS Antigen (ISABELLE) result to be used for statistical tracking purpose only. No Panel InformationOrdered By: Kp Tran on 04-14-2022 SARS Antigen (LFIA) [facility] Jacky Ag Negativeon 04-14-20 Jacky Ag Negative Negative Normal Negative [facility] Comment on above: Result Comment: This is a duplicate Jacky SARS Antigen (ISABELLE) result to be used for statistical tracking purpose only. PERFORMED BY: [place] [address] PATHOLOGIST FACILITIES LOCATOR CELINE JOSUE M.D. Performed By: #### S OFIANEG, COVID-19 JACKY #### [address] CBC AUTO DIFFon 04-07-2022 BASO # 0.1 103/ul Normal 0.0-0.1 [facility] Comment on above: Performed By: #### C BC #### [facility] [address] [place] [address] Dr. Ramiro Bain Basophils/100 WBC (Bld) 1.0 % Normal 0.2-2.0 [facility] Comment on above: Performed By: #### C BC #### [facility] [address] [address] [address] Ramiro Bain EO # 0.2 103/ul Normal 0.0-0.7 [facility] Comment on above: Performed By: #### C BC #### [facility] [address] [address] [address] Ramiro Bain Eosinophils/100 WBC (Bld) 2.3 % Normal 0.9-7.0 [facility] Comment on above: Performed By: #### C BC #### [facility] [address] [place] [address] Dr. Ramiro Bain Erythrocyte distribution width (RBC) [Ratio] 12.7 % Normal 11.0-15.0 [facility] Comment on above: Performed By: #### C BC #### [facility] [address] [place] [address] Dr. Ramiro Bain Hematocrit (Bld) [Volume fraction] 41.6 % Critically low 42.0-54.0 [facility] Comment on above: Performed By: #### C BC #### [facility] [address] [place] [address] Dr. Ramiro Bain Hemoglobin (Bld) [Mass/Vol] 13.8 g/dL Critically low 14.0-18.0 [facility] Comment on above: Performed By: #### C BC #### [facility] [address] [place] [address] Dr. Ramiro Bain IG # 0.03 10e3/ul Normal 0.00-0.03 [facility] Comment on above: Performed By: #### C BC #### [facility] [address] [place] [address] Dr. Ramiro Bain IG % 0.4 % Normal 0.0-0.5 [facility] Comment on above: Performed By: #### C BC #### [facility] [address] [place] [address] Dr. Ramiro Bain LYMPH # 1.8 103/ul Normal 1.2-3.8 [facility] Comment on above: Performed By: #### C BC #### [facility] [address] [place] [address] Dr. Ramiro Bain Lymphocytes/100 WBC (Bld) 22.4 % Normal 20.5-60.0 [facility] Comment on above: Performed By: #### C BC #### [facility] [address] [place] [address] Dr. Ramiro Bain MANUAL DIFF REQ NO Normal [facility] Comment on above: Performed By: #### C BC #### [facility] [address] [place] [address] Dr. Ramiro Bain MCH (RBC) [Entitic mass] 29.9 pg Normal 25.9-34.0 [facility] Comment on above: Performed By: #### C BC #### [facility] [address] [address] [address] Ramiro Bain MCHC (RBC) [Mass/Vol] 33.2 g/dL Normal 29.9-35.2 [facility] Comment on above: Performed By: #### C BC #### [facility] [address] [address] [address] Ramiro Bain MCV (RBC) [Entitic vol] 90.0 fL Normal 80.0-94.0 [facility] Comment on above: Performed By: #### C BC #### [facility] [address] [address] [address] Ramiro Bain MONO # 0.7 103/ul Normal 0.3-0.8 [facility] Comment on above: Performed By: #### C BC #### [facility] [address] [place] [address] Dr. Ramiro Bain Monocytes/100 WBC (Bld) 8.2 % Normal 1.7-12.0 [facility] Comment on above: Performed By: #### C BC #### [facility] [address] [address] [address] Ramiro Bain NEUT # 5.4 103/ul Normal 1.4-6.5 [facility] Comment on above: Performed By: #### C BC #### [facility] [address] [address] [address] Ramiro Bain Neutrophils/100 WBC (Bld) 65.7 % Normal 43.0-75.0 [facility] Comment on above: Performed By: #### C BC #### [facility] [address] [address] [address] Ramiro Bain Platelet mean volume (Bld) [Entitic vol] 9.3 fL Critically low 9.5-13.5 [facility] Comment on above: Performed By: #### C BC #### [facility] [address] [address] [address] Ramiro Bain PLT 272 103/ul Normal 150-450 [facility] Comment on above: Performed By: #### C BC #### [facility] [address] [place] [address] Dr. Ramiro Bain RBC 4.62 106/ul Critically low 4.70-6.10 [facility] Comment on above: Performed By: #### C BC #### [facility] [address] [place] [address] Dr. Ramiro Bain WBC 8.1 103/ul Normal 4.0-11.0 [facility] Comment on above: Performed By: #### C BC #### [facility] [address] [place] [address] Dr. Ramiro Bain CPKon 04-07-2022 CK [Catalytic activity/Vol] 130 U/L Normal 39-308 [facility] Comment on above: Performed By: #### A LT DLDL, CK #### [facility] [address] [place] [address] Dr. Ramiro Bain DIRECT LDLon 04-07-2022 Cholesterol in LDL [Mass/Vol] 62 mg/dL Normal [facility] Comment on above: Performed By: #### A LT DLDL, CK #### [facility] [address] [place] [address] Dr. Ramiro Bain DLDL NORMAL SEE BELOW Normal [facility] Comment on above: Result Comment: <100 mg/dl OPTIMAL 100 - 129 mg/dl NEAR OR ABOVE OPTIMAL 130 - 159 mg/dl BORDERLINE HIGH 160 - 189 mg/dl HIGH >190 mg/dl VERY HIGH Performed By: #### A LT DLDL, CK #### [facility] [address] [place] [address] Dr. Ramiro Bain SGPTon 04-07-2022 ALT [Catalytic activity/Vol] 23 U/L Normal 16-63 [facility] Comment on above: Performed By: #### A LT, DLDL, CK #### [facility] [address] [place] [address] Dr. Ramiro Bain CBC AUTO DIFFon 01-08-2022 BASO # 0.1 103/ul Normal 0.0-0.1 [facility] Comment on above: Performed By: #### C BC #### [facility] [address] [place] [address] Dr. Ramiro Bain Basophils/100 WBC (Bld) 1.1 % Normal 0.2-2.0 [facility] Comment on above: Performed By: #### C BC #### [facility] [address] [place] [address] Dr. Ramiro Bain EO # 0.2 103/ul Normal 0.0-0.7 [facility] Comment on above: Performed By: #### C BC #### [facility] [address] [place] [address] Dr. Ramiro Bain Eosinophils/100 WBC (Bld) 3.1 % Normal 0.9-7.0 [facility] Comment on above: Performed By: #### C BC #### [facility] [address] [place] [address] Dr. Ramiro Bain Erythrocyte distribution width (RBC) [Ratio] 12.8 % Normal 11.0-15.0 [facility] Comment on above: Performed By: #### C BC #### [facility] [address] [place] [address] Dr. Ramiro Bain Hematocrit (Bld) [Volume fraction] 41.2 % Critically low 42.0-54.0 [facility] Comment on above: Performed By: #### C BC #### [facility] [address] [place] [address] Dr. Ramiro Bain Hemoglobin (Bld) [Mass/Vol] 13.8 g/dL Critically low 14.0-18.0 [facility] Comment on above: Performed By: #### C BC #### [facility] [address] [place] [address] Dr. Ramiro Bain IG # 0.03 10e3/ul Normal 0.00-0.03 [facility] Comment on above: Performed By: #### C BC #### [facility] [address] [place] [address] Dr. Ramiro Bain IG % 0.4 % Normal 0.0-0.5 [facility] Comment on above: Performed By: #### C BC #### [facility] [address] [place] [address] Dr. Ramiro Bain LYMPH # 2.1 103/ul Normal 1.2-3.8 [facility] Comment on above: Performed By: #### C BC #### [facility] [address] [place] [address] Dr. Ramiro Bain Lymphocytes/100 WBC (Bld) 29.5 % Normal 20.5-60.0 [facility] Comment on above: Performed By: #### C BC #### [facility] [address] [place] [address] Dr. Ramiro Bain MANUAL DIFF REQ NO Normal [facility] Comment on above: Performed By: #### C BC #### [facility] [address] [place] [address] Dr. Ramiro Bain MCH (RBC) [Entitic mass] 30.5 pg Normal 25.9-34.0 [facility] Comment on above: Performed By: #### C BC #### [facility] [address] [place] [address] Dr. Ramiro Bain MCHC (RBC) [Mass/Vol] 33.5 g/dL Normal 29.9-35.2 [facility] Comment on above: Performed By: #### C BC #### [facility] [address] [place] [address] Dr. Ramiro Bain MCV (RBC) [Entitic vol] 90.9 fL Normal 80.0-94.0 [facility] Comment on above: Performed By: #### C BC #### [facility] [address] [place] [address] Dr. Ramiro Bain MONO # 0.6 103/ul Normal 0.3-0.8 [facility] Comment on above: Performed By: #### C BC #### [facility] [address] [place] [address] Dr. Ramiro Bain Monocytes/100 WBC (Bld) 8.6 % Normal 1.7-12.0 [facility] Comment on above: Performed By: #### C BC #### [facility] [address] [place] [address] Dr. Ramiro Bain NEUT # 4.0 103/ul Normal 1.4-6.5 [facility] Comment on above: Performed By: #### C BC #### [facility] [address] [address] [address] Ramiro Bain Neutrophils/100 WBC (Bld) 57.3 % Normal 43.0-75.0 [facility] Comment on above: Performed By: #### C BC #### [facility] [address] [address] [address] Ramiro Bain Platelet mean volume (Bld) [Entitic vol] 9.1 fL Critically low 9.5-13.5 [facility] Comment on above: Performed By: #### C BC #### [facility] [address] [address] [address] Ramiro Bain PLT 272 103/ul Normal 150-450 [facility] Comment on above: Performed By: #### C BC #### [facility] [address] [address] [address] Ramiro Bain RBC 4.53 106/ul Critically low 4.70-6.10 [facility] Comment on above: Performed By: #### C BC #### [facility] [address] [address] [address] Ramiro Bain WBC 7.0 103/ul Normal 4.0-11.0 [facility] Comment on above: Performed By: #### C BC #### [facility] [address] [address] [address] Ramiro Bain GLYCOHEMOGLOBIN A1Con 2021 ADA RECOMMENDATION SEE BELOW Normal [facility] Comment on above: Result Comment: ADA RECOMMENDED LIMIT 4.0 - 6.0 ADA THERAPEUTIC TARGET < 7.0 ACTION SUGGESTED > 7.0 Performed By: #### A 1C ####[facility] [id number] [address]Dr. Ramiro Bain Glucose [Mass/Vol] 126 mg/dL Normal [facility] Comment on above: Performed By: #### A 1C ####[facility] [id number] [address]Dr. Ramiro Bain HbA1c (Bld) [Mass fraction] 6.0 % Normal 4.5-6.2 [facility] Comment on above: Performed By: #### A 1C ####[facility] [id number] [address]Dr. Ramiro Bain LIPID PROFILEon 01-08-2022 CHOL-HDL RATIO NORM SEE BELOW Normal [facility] Comment on above: Result Comment: 3.3 - 4.4 LOW RISK 4.4 - 7.1 AVERAGE RISK 7.1 - 11.0 MODERATE RISK >11.0 HIGH RISK Performed By: #### L IPID, ALT, BMP #### [facility] [address] [address] [address] Ramiro Bain Cholesterol [Mass/Vol] 195 mg/dL Normal <=200 [facility] Comment on above: Performed By: #### L IPID, ALT, BMP #### [facility] [address] [address] [address] Ramiro Bain Cholesterol in HDL [Mass/Vol] 42 mg/dL Normal 40-60 [facility] Comment on above: Performed By: #### L IPID, ALT, BMP #### [facility] [address] [address] [address] Ramiro Bain Cholesterol in LDL [Mass/Vol] 119.0 mg/dL Normal [facility] Comment on above: Performed By: #### L IPID, ALT, BMP #### [facility] [address] [address] [address] Ramiro Bain Cholesterol.total/Chol esterol in HDL [Mass ratio] 4.6 {ratio} Normal [facility] Comment on above: Performed By: #### L IPID, ALT, BMP #### [facility] [address] [address] [address] Ramiro Bain HDL NORMAL > or = 60 mg/dl - LOW CARDIOVASCULAR RISK <40 mg/dl - HIGH CARDIOVASCULAR RISK Normal [facility] Comment on above: Performed By: #### L IPID, ALT, BMP #### [facility] [address] [address] [address] Ramiro Bain LDL CALC NORMAL SEE BELOW Normal [facility] Comment on above: Result Comment: <100 mg/dl OPTIMAL 100 - 129 mg/dl NEAR OR ABOVE OPTIMAL 130 - 159 mg/dl BORDERLINE HIGH 160 - 189 mg/dl HIGH >190 mg/dl VERY HIGH Performed By: #### L IPID, ALT, BMP #### [facility] [address] [address] [address] Ramiro Bain Triglyceride [Mass/Vol] 168 mg/dL Critically high <=150 [facility] Comment on above: Performed By: #### L IPID, ALT, BMP #### [facility] [address] [address] [address] Ramiro Bain VLDL CALC 33.6 mg/dL Normal [facility] Comment on above: Performed By: #### L IPID, ALT, BMP #### [facility] [address] [address] [address] Ramiro Bain MICROALBUMIN, RAND URon 07-3 mALB 1.4 mg/L Normal <=30.0 [facility] Comment on above: Performed By: #### M ALBR ####[facility] [id number] [address]Dr. Ramiro Bain PROF CHEM 8 (BAS METB)on Anion gap [Moles/Vol] 10.8 mmol/L Normal [facility] Comment on above: Performed By: #### L IPID, ALT, BMP ####[facility] [id number] [id number]. Ramiro Bain Calcium [Mass/Vol] 8.7 mg/dL Normal 8.5-10.1 [facility] Comment on above: Performed By: #### L IPID, ALT, BMP ####[facility] [id number] [id number]. Ramiro Bain Chloride [Moles/Vol] 107 mmol/L Normal 98-107 [facility] Comment on above: Performed By: #### L IPID, ALT, BMP ####[facility] [id number] [id number]. Ramiro Bain CO2 [Moles/Vol] 27.7 mmol/L Normal 21.0-32.0 [facility] Comment on above: Performed By: #### L IPID, ALT, BMP ####[facility] [address] [address]Dr. Ramiro Bain Creatinine [Mass/Vol] 1.12 mg/dL Normal 0.70-1.30 [facility] Comment on above: Performed By: #### L IPID, ALT, BMP ####[facility] [address] [id number]. Ramiro Bain EGFR-AF ISRAELI >60 Normal >=60 [facility] Comment on above: Performed By: #### L IPID, ALT, BMP ####[facility] [id number] [address]Dr. Ramiro Bain EGFR-NON AF ISRAELI >60 Normal >=60 [facility] Comment on above: Performed By: #### L IPID, ALT, BMP ####[facility] [address] [address]Dr. Ramiro Bain Glucose [Mass/Vol] 110 mg/dL Critically high 74-106 [facility] Comment on above: Performed By: #### L IPID, ALT, BMP ####[facility] [id number] [address]Dr. Ramiro Bain Potassium [Moles/Vol] 4.5 mmol/L Normal 3.5-5.1 [facility] Comment on above: Performed By: #### L IPID, ALT, BMP ####[facility] [address] [id number]. Ramiro Bain Sodium [Moles/Vol] 141 mmol/L Normal 136-145 [facility] Comment on above: Performed By: #### L IPID, ALT, BMP ####[facility] [address] [address]Dr. Ramiro Bain Urea nitrogen [Mass/Vol] 22.0 mg/dL Critically high 7.0-18.0 [facility] Comment on above: Performed By: #### L IPID, ALT, BMP ####[facility] [address] [place], [place] [address]Si. Ramiro Bain Urea nitrogen/Creatinine [Mass ratio] 19.6 mg/mg Normal [facility] Comment on above: Performed By: #### L IPID, ALT, BMP ####[facility] [address] [place], [place] [address]Ok. Ramiro Bain SGPTon 01-08-2022 ALT [Catalytic activity/Vol] 22 U/L Normal 16-63 [facility] Comment on above: Performed By: #### L IPID, ALT, BMP ####[facility] [address] [place], [place] [address]Rq. Ramiro Bain Vital Signs Date Time Vital Sign Value Performing Clinician Facility 02-06-2025 08:44-0400 Body height 177.8 cm Raad Ball DO Work Phone: [facility] 02-06-2025 08:44-0400 Body mass index (BMI) [Ratio] 26.6 kg/m2 Raad Ball DO Work Phone: [facility] 02-06-2025 08:44-0400 Body weight 84.02 kg Raad Ball DO Work Phone: [facility] 02-06-2025 08:44-0400 Diastolic blood pressure 75 mm[Hg] Raad Ball DO Work Phone: [facility] 02-06-2025 08:44-0400 Heart rate 76 /min Raad Ball DO Work Phone: [facility] 02-06-2025 08:44-0400 Respiratory rate 12 /min Raad Ball DO Work Phone: [facility] 02-06-2025 08:44-0400 Systolic blood pressure 139 mm[Hg] Raad Ball DO Work Phone: [facility] 11-07-2024 08:40-0400 Body height 177.8 cm [facility] 11-07-2024 08:40-0400 Body mass index (BMI) [Ratio] 27.8 kg/m2 [facility] 11-07-2024 08:40-0400 Body weight 88.11 kg [facility] 11-07-2024 08:40-0400 Diastolic blood pressure 75 mm[Hg] [facility] 11-07-2024 08:40-0400 Heart rate 84 /min [facility] 11-07-2024 08:40-0400 Respiratory rate 12 /min [facility] 11-07-2024 08:40-0400 Systolic blood pressure 139 mm[Hg] [facility] 07-23-2024 08:37-0500 Body height 177.8 cm [facility] 07-23-2024 08:37-0500 Body mass index (BMI) [Ratio] 29.4 kg/m2 [facility] 07-23-2024 08:37-0500 Body weight 93.04 kg [facility] 07-23-2024 08:37-0500 Diastolic blood pressure 89 mm[Hg] [facility] 07-23-2024 08:37-0500 Heart rate 87 /min [facility] 07-23-2024 08:37-0500 Respiratory rate 12 /min [facility] 07-23-2024 08:37-0500 Systolic blood pressure 139 mm[Hg] [facility] 04-26-2024 08:27-0500 Body height 177.8 cm [facility] 04-26-2024 08:27-0500 Body mass index (BMI) [Ratio] 28.5 kg/m2 [facility] 04-26-2024 08:27-0500 Body weight 90.32 kg [facility] 04-26-2024 08:27-0500 Diastolic blood pressure 73 mm[Hg] [facility] 04-26-2024 08:27-0500 Heart rate 73 /min [facility] 04-26-2024 08:27-0500 Respiratory rate 12 /min [facility] 04-26-2024 08:27-0500 Systolic blood pressure 177 mm[Hg] [facility] 01-23-2024 09:33-0400 Body height 177.8 cm [facility] 01-23-2024 09:33-0400 Body mass index (BMI) [Ratio] 28 kg/m2 [facility] 01-23-2024 09:33-0400 Body weight 88.67 kg [facility] 01-23-2024 09:33-0400 Diastolic blood pressure 67 mm[Hg] [facility] 01-23-2024 09:33-0400 Heart rate 69 /min [facility] 01-23-2024 09:33-0400 Respiratory rate 12 /min [facility] 01-23-2024 09:33-0400 Systolic blood pressure 139 mm[Hg] [facility] 10-18-2023 08:37-0400 Body height 177.8 cm [facility] 10-18-2023 08:37-0400 Body mass index (BMI) [Ratio] 28.4 kg/m2 [facility] 10-18-2023 08:37-0400 Body weight 89.81 kg [facility] 10-18-2023 08:37-0400 Diastolic blood pressure 76 mm[Hg] [facility] 10-18-2023 08:37-0400 Heart rate 84 /min [facility] 10-18-2023 08:37-0400 Respiratory rate 12 /min [facility] 10-18-2023 08:37-0400 Systolic blood pressure 165 mm[Hg] [facility] 07-21-2023 09:30-0500 Body height 177.8 cm Raad Ball Other [facility] [employer] Other 07-21-2023 09:30-0500 Body mass index (BMI) [Ratio] 29.33 kg/m2 Raad Ball Other [facility] [employer] Other 07-21-2023 09:30-0500 Body weight 92.72 kg Raad Ball Other [facility] [employer] Other 07-21-2023 09:30-0500 Diastolic blood pressure 77 mm[Hg] Raad Ball Other [employer] Other 07-21-2023 09:30-0500 Respiratory rate 12 /min Raad Ball Other [employer] Other 07-21-2023 09:30-0500 Systolic blood pressure 159 mm[Hg] Raad Ball Other [employer] Other 04-20-2023 09:00-0500 Body height 177.8 cm Raad Ball Other [employer] Other 04-20-2023 09:00-0500 Body mass index (BMI) [Ratio] 28.72 kg/m2 Rada Ball Other [employer] Other 04-20-2023 09:00-0500 Body weight 90.81 kg Raad Ball Other [employer] Other 04-20-2023 09:00-0500 Diastolic blood pressure 70 mm[Hg] Raad Ball Other [employer] Other 04-20-2023 09:00-0500 Respiratory rate 12 /min Raad Ball Other [employer] Other 04-20-2023 09:00-0500 Systolic blood pressure 170 mm[Hg] Raad Ball Other [employer] Other 10-18-2022 10:30-0400 Body height 177.8 cm Raad Ball Other [employer] Other 10-18-2022 10:30-0400 Body mass index (BMI) [Ratio] 29.84 kg/m2 Raad Ball Other [employer] Other 10-18-2022 10:30-0400 Body weight 94.35 kg Raad Ball Other [employer] Other 10-18-2022 10:30-0400 Diastolic blood pressure 77 mm[Hg] Raad Ball Other [employer] Other 10-18-2022 10:30-0400 Respiratory rate 12 /min Raad Ball Other [employer] Other 10-18-2022 10:30-0400 Systolic blood pressure 149 mm[Hg] Raad Ball Other [employer] Other 07-21-2022 08:30-0500 Body height 177.8 cm Raad Ball Other [employer] Other 07-21-2022 08:30-0500 Body mass index (BMI) [Ratio] 29.99 kg/m2 Raad Ball Other [employer] Other 07-21-2022 08:30-0500 Body weight 94.8 kg Raad Ball Other [employer] Other 07-21-2022 08:30-0500 Diastolic blood pressure 64 mm[Hg] Raad Ball Other [employer] Other 07-21-2022 08:30-0500 Respiratory rate 12 /min Raad Ball Other [employer] Other 07-21-2022 08:30-0500 Systolic blood pressure 128 mm[Hg] Raad Ball Other [employer] Other 04-18-2022 11:18-0500 Diastolic blood pressure 74 mm[Hg] DO Raad Ball Work Phone: [facility] 04-18-2022 11:18-0500 Heart rate 67 /min DO Raad Ball Work Phone: [facility] 04-18-2022 11:18-0500 SaO2% (BldA) [Mass fraction] 97 % DO Raad Ball Work Phone: [facility] 04-18-2022 11:18-0500 Systolic blood pressure 143 mm[Hg] DO Raad Ball Work Phone: [facility] 04-18-2022 09:57-0500 Body height 182.88 cm DO Raad Ball Work Phone: [facility] 04-18-2022 09:57-0500 Body temperature 98.4 [degF] DO Raad Ball Work Phone: [facility] 04-18-2022 09:57-0500 Body weight 97.52 kg DO Raad Ball Work Phone: [facility] 04-18-2022 09:57-0500 Respiratory rate 16 /min DO Raad Ball Work Phone: [facility] Encounters Encounter Date Encounter Type Care Provider Facility Start: 02-06-2025 End: 02-06-2025 ambulatory Raad Mccrary DO Work Phone: [facility] Work Phone: Start: 02-06-2025 End: 02-06-2025 Patient encounter procedure Raad Mccrary DO -[facility] Work Phone: Start: 11-07-2024 End: 11-07-2024 ambulatory [facility] Work Phone: Start: 11-07-2024 End: 11-07-2024 Patient encounter procedure [facility] Work Phone: Start: 07-23-2024 End: 07-23-2024 ambulatory [facility] Work Phone: Start: 07-23-2024 End: 07-23-2024 Patient encounter procedure [facility] Work Phone: Start: 05-03-2024 End: 05-03-2024 Patient encounter procedure [facility] Work Phone: Start: 04-26-2024 End: 04-26-2024 ambulatory [facility] Work Phone: Start: 04-26-2024 End: 04-26-2024 Patient encounter procedure [facility] Work Phone: Start: 04-18-2024 Non-patient / Non-visit [facility] Work Phone: Start: 01-24-2024 Non-patient / Non-visit [facility] [employer] Work Phone: Start: 01-23-2024 End: 01-23-2024 ambulatory [facility] Work Phone: Start: 01-23-2024 End: 01-23-2024 Patient encounter procedure [facility] Work Phone: Start: 12-11-2023 End: 12-11-2023 ambulatory [facility] Work Phone: Start: 12-11-2023 End: 12-11-2023 Patient encounter procedure [facility] Work Phone: Start: 10-18-2023 End: 10-18-2023 ambulatory [facility] Work Phone: Start: 10-18-2023 End: 10-18-2023 Patient encounter procedure [facility] Work Phone: Start: 07-31-2023 End: 07-31-2023 ambulatory Raad Mccrary Other [place] [employer] Other Start: 07-31-2023 Telephone encounter Raad Mccrary [facility] Start: 07-31-2023 Non-patient / Non-visit [facility] [employer] Work Phone: Start: 07-21-2023 End: 07-21-2023 ambulatory Raad Ball Other [employer] Other Start: 07-21-2023 Office outpatient visit 25 minutes Raad Ball [facility] Start: 06-29-2023 End: 06-29-2023 ambulatory Raad Ball Other [employer] Other Start: 06-29-2023 Telephone encounter Raad Ball [facility] Start: 05-29-2023 End: 05-29-2023 ambulatory Raad Ball Other [employer] Other Start: 05-29-2023 Telephone encounter Raad Ball [facility] Start: 04-28-2023 End: 04-28-2023 ambulatory Raad Ball Other [employer] Other Start: 04-28-2023 Telephone encounter Raad Ball [facility] Start: 04-20-2023 End: 04-20-2023 ambulatory Raad Ball Other [employer] Other Start: 04-20-2023 Office outpatient visit 25 minutes Raad Ball [facility] Start: 03-29-2023 End: 03-29-2023 ambulatory Raad Ball Other [employer] Other Start: 03-29-2023 Telephone encounter Raad Ball [facility] Start: 02-27-2023 End: 02-27-2023 ambulatory Raad Ball Other [employer] Other Start: 02-27-2023 Telephone encounter Raad Ball [facility] Start: 01-27-2023 End: 01-27-2023 ambulatory Raad Ball Other [employer] Other Start: 01-27-2023 Telephone encounter Raad Ball [facility] Start: 12-27-2022 End: 12-27-2022 ambulatory Raad Ball Other [employer] Other Start: 12-27-2022 Telephone encounter Raad Ball [facility] Start: 10-18-2022 End: 10-18-2022 ambulatory Raad Ball Other [employer] Other Start: 10-18-2022 Office outpatient visit 25 minutes Raad Ball [facility] Start: 09-26-2022 End: 09-26-2022 ambulatory Raad Ball Other [employer] Other Start: 09-26-2022 Telephone encounter Raad Ball [facility] Start: 08-25-2022 End: 08-25-2022 ambulatory Raad Ball Other [employer] Other Start: 08-25-2022 Telephone encounter Raad Ball [facility] Start: 08-16-2022 End: 08-16-2022 ambulatory Raad Ball Other [employer] Other Start: 08-16-2022 Office outpatient visit 15 minutes Raad Ball [facility] Start: 07-28-2022 End: 07-28-2022 ambulatory Raad Ball Other [employer] Other Start: 07-28-2022 Telephone encounter Raad Wes [facility] Start: 07-22-2022 End: 07-23-[address] RAAD MCCRARY Facility:[facility] Start: 07-21-2022 End: 07-21-2022 ambulatory Raad Ball Other [facility] [employer] Other Start: 07-21-2022 Office outpatient visit 25 minutes Raad Ball [facility] Start: 06-27-2022 End: 06-27-2022 ambulatory Raad Ball Other [employer] Other Start: 06-27-2022 Telephone encounter Raad Mccrary [facility] Start: 04-18-2022 End: 04-18-2022 ambulatory Raad Wes Facility:[facility] Start: 04-18-2022 End: 04-18-2022 Admission to same day surgery center DO Raad Mccrary Work Phone: [facility] Start: 04-18-2022 End: 04-18-2022 ambulatory DO Raad Mccrary Work Phone: [facility] Work Phone: Start: 04-14-2022 End: 04-14-2022 ambulatory Kp Tran Facility:[facility] Start: 04-14-2022 End: 04-14-2022 ambulatory DO Raad Mccrary Work Phone: [facility] Work Phone: Start: 04-14-2022 End: 04-14-2022 Patient encounter procedure DO Raad Mccrary Work Phone: [facility] Start: 04-07-2022 End: 04-08-[address] [...] Comment on above: Performed By: #### P [facility] #### [facility] [address] [place] [address] Dr. Ramiro Bain SARS Antigen (LFIA) DO Igor Mccrary Work Phone: Plan of Treatment Date Care Activity Detail Author Start: 04-18-2022 [facility] Comprehensive metabo lic 1999 panel - Serum or Plasma [facility] Comprehensive metabo lic 1999 panel - Serum or Plasma [facility] Microalbumin [Mass/volume] in Urine [facility] Patient Education Hemorrhoids (D C) Diverticulosis (DC) [facility] Work Phone: [facility] Immunizations Immunization Date Immunization Notes Care Provider Rickey mcdonnell 04-20-2023 influenza virus vaccine, unspecified formulation [facility] 04-20-2023 influenza, high dose seasonal, preservative-free Raad Mccrary Other [employer] Other 04-12-2022 influenza virus vaccine, unspecified formulation [facility] 04-12-2022 influenza, high dose seasonal, preservative-free Raad Mccrary Other [employer] Other 03-05-2020 influenza virus vaccine, split virus (incl. purified surface antigen) Raad Mccrary Other [employer] Other 03-05-2020 influenza virus vaccine, unspecified formulation [facility] Payers Date Payer Category Payer Self-pay 1961 Medicare [id number] 1961 Unknown [id number] 1955 Unknown [id number] 2.16.84 [id number] 1955 Unknown [id number] .16.84 [id number] 1955 Unknown [id number] .16.84 [id number] 1953 Unknown [id number] 2.16.84 [id number] 1953 Unknown [id number] 2.16.84 [id number] Unknown [id number] 2.16.8 [id number] Unknown [id number] 2.16.8 [id number] Unknown [id number] Social History Date Type Detail Facility Tobacco smoking status NHIS Unknown if ever smoked [facility] Work Phone: Start: 1955 Sex Assigned At Male F [facility] Start: 04-18-2022 End: 04-18-2022 Tobacco smoking status NHIS Never smoked tobacco (finding) [facility] Sex Assigned At Sex Assigned At [facility] [employer] Other Start: 04-26-2024 End: 11-07-2024 Sex Male (finding) [facility] Goals Date Patient Goal Desired Activity /State Clinical Notes 08-05-2021 to 04-26-2024 Note Date & Type Note Facility 04-26-2024 Evaluation note Diagnosis Onset Date Resolution Elevated cholesterol acute Nove mber 2023 8:23am Hypertension acute April 8:23am Lumbar spondylosis acute Novemb er 2023 [...] diabetes mellitus with hyperglycemia acute July 8:27am [facility] Work Phone: 1(265) 898-142202-19-2024 Evaluation note* Encounter Date Diagnosis Assessment Notes Treatment Notes Treatment Clinical Notes Jul, Post-traumatic osteoarthritis of left ankle (ICD-10 - M19.172) [facility] [employer] Other 02-09-2024 Evaluation note* Encounter Date Diagnosis [...] report is being monitored every 90 days. [facility] [employer] Other 01-18-2024 Evaluation note* Encounter Date Diagnosis Assessment Notes Treatment Notes Treatment Clinical Notes Jun, Post-traumatic osteoarthritis of left ankle (ICD-10 - M19.172) [facility] [employer] [facility] Other 12-18-2023 Evaluation note* Encounter Date Diagnosis Assessment Notes Treatment Notes Treatment Clinical Notes May, Post-traumatic osteoarthritis of left ankle (ICD-10 - M19.172) [facility] [employer] Other 11-17-2023 Evaluation note* Encounter Date Diagnosis Assessment Notes Treatment Notes Treatment Clinical Notes Apr, Post-traumatic osteoarthritis of left ankle (ICD-10 - M19.172) [facility] [employer] [facility] Other 11-09-2023 Evaluation note* Encounter Date Diagnosis [...] exercise for 30 minutes, 3-5 times weekly. [facility] [employer] Other 10-18-2023 Evaluation note* Encounter Date Diagnosis Assessment Notes Treatment Notes Treatment Clinical Notes Mar, Benign prostatic hyperplasia with lower urinary tract symptoms (ICD-10 - N40.1) [facility] [employer] [facility] Other 09-18-2023 Evaluation note* Encounter Date Diagnosis Assessment Notes Treatment Notes Treatment Clinical Notes Feb, Benign prostatic hyperplasia with lower urinary tract symptoms (ICD-10 - N40.1) [facility] [employer] [facility] Other 08-18-2023 Evaluation note* Encounter Date Diagnosis Assessment Notes Treatment Notes Treatment Clinical Notes Jan, Benign prostatic hyperplasia with lower urinary tract symptoms (ICD-10 - N40.1) [facility] [employer] Other 05-09-2023 Evaluation note* Encounter Date Diagnosis [...] drug for therapeutic purpose (ICD-10 - Z79.891) [facility] [employer] [facility] Other 04-17-2023 Evaluation note* Encounter Date Diagnosis Assessment Notes Treatment Notes Treatment Clinical Notes Sep, Post-traumatic osteoarthritis of left ankle (ICD-10 - M19.172) [facility] [employer] [facility] Other 03-16-2023 Evaluation note* Encounter Date Diagnosis Assessment Notes Treatment Notes Treatment Clinical Notes Aug, Post-traumatic osteoarthritis of left ankle (ICD-10 - M19.172) [facility] [employer] [facility] Other 03-07-2023 Evaluation note* Encounter Date Diagnosis [...] continue exercise to achieve/maintain a normal BMI. [facility] [employer] Other 02-16-2023 Evaluation note* Encounter Date Diagnosis Assessment Notes Treatment Notes Treatment Clinical Notes Jul, Post-traumatic osteoarthritis of left ankle (ICD-10 - M19.172) [facility] [employer] [facility] Other 02-09-2023 Evaluation note* Encounter Date Diagnosis [...] surveillance scopes, next due in 5 years [facility] [employer] Other [id number] [facility] NotePROCEDURE: XR FEMUR LT, XR KNEE [...] Electronically authenticated by: DAGOBERTO BARTON Date: 2021-08-05 13:43[facility]02-24-2022 NotePROCEDURE: XR FEMUR LT, XR KNEE LT [...] Electronically authenticated by: DAGOBERTO BARTON Date: 2021-08-05 13:43[facility] noteNo assessment information available[facility] Work Phone: Evaluation note* Diagnosis Onset Date Resolution Status History of colon polyps acut e [facility] Work Phone: Evaluation noteNo InformationNortMain Line [facility] [employer] Other Evaluation noteNortMain Line [facility] [employer] Other Evaluation note* Diagnosis Onset Date Resolution Status Elevated cholesterol acute Hypertension acute Lumbar spondylosis acute Traumatic arthritis of left ankle acute Type 2 diabetes mellitus with hyperglycemia acute [facility] Work Phone: Evaluation note* Diagnosis Onset Date Resolution Status Elevated cholesterol acute Hypertension acute Lumbar spondylosis acute Opiate analgesic use agreement exists acute Type 2 diabetes mellitus with hyperglycemia acute Medicare annual wellness visit, subsequent noneactive Screening PSA (prostate specific antigen) noneactive [facility] Work Phone: Evaluation note* Diagnosis Onset Date Resolution Status COVID acute Elevated cholesterol acute Hypertension acute Elevated cholesterol acute Hypertension acute Lumbar spondylosis acute Opiate analgesic use agreement exists acute Type 2 diabetes mellitus with hyperglycemia acute Medicare annual wellness visit, subsequent noneactive Screening PSA (prostate specific antigen) noneactive [facility] Work Phone: Evaluation note* Diagnosis Onset Date Resolution Status Admit Date Elevated cholesterol acute Nove mber 2023 8:23am Hypertension acute April 8:23am Lumbar spondylosis acute Novemb er 2023 8:23am Opiate analgesic use agreeme nt exists acute April 26 024 8:23am Type 2 diabetes mellitus wit h hyperglycemia acute April 26 8:23am [facility] Work Phone: Evaluation note* Diagnosis Onset Date Resolution Status Admit Date Elevated cholesterol acute November 07, 2024 8:24am Folic acid deficiency acute November 07, 2024 8:24am Hypertension acute November 07 8:24am Lumbar spondylosis acute November 072024 8:24am Opiate analgesic use agreeme nt exists acute November 07, 2024 8 :24am Overweight acute November 07, 2024 8:24am Type 2 diabetes mellitus wit h hyperglycemia acute November 07, 2024 8 :24am [facility] Work Phone: Evaluation note* Diagnosis Onset Date Resolution Status Admit Date Elevated cholesterol acute Augu st 2024 8:26am Folic acid deficiency acute Jan ust 2024 8:26am Hypertension acute February 06, 2025 8:26am Lumbar spondylosis acute February 06, 2025 8:26am Opiate analgesic use agreeme nt exists acute February 06 8:26am Overweight acute February 06, 2 025 8:26am Traumatic arthritis of left ankle acute February 06 8:26am Type 2 diabetes mellitus wit h hyperglycemia acute February 06 8:26am Medicare annual wellness visit, subsequent noneactive February 06, 2 025 8:26am Screening PSA (prostate specific antigen) noneactive February 06 8:26am [facility] Work Phone: History general Narrative - Reported* [...] COLONOSCOPY 2016, 2021 Surgical History UMBILICAL HERNIORRHAPY 2014 Surgical History REMOVAL OF MESH 2015 Hospitalization History SEE SURGICAL [facility] [employer] [facility] Other [facility] - [facility] general Narrative - Reported* Type Description Date [...] REMOVAL OF MESH 2015 Surgical History Colonoscopy 2016 Surgical History Colonoscopy (repeat 2026) 2021 Hospitalization History SEE SURGICAL [facility] Other Hospital Discharge instructions Additional Instructions DISCHARGE [...] if you have any problems. -Office number [phone] [facility] Work Phone: Reason for referral (narrative)No reason for referral information availableFisher-T[facility] Work Phone: Chief Complaint and Reason for [...] 3 month f/u April 26, 2024 8:23am [phone] cough, congestion, COVID - May 03, 2024 [...] 2024 8:27am Opiate analgesic use agreement exists [facility] 2024 8:27am Overweight July 23, 2024 8:27am Type 2 diabetes mellitus with hyperglyce [facility] July 23, 2024 8:27am Chief Complaint Admit Date 3 month f/u November 07, 2024 8:24a m Reason for Visit Admit Date Elevated cholesterol November 07, 2024 8:24 am Folic acid deficiency November 07, 2024 8:2 4am Hypertension November 07, 2024 8:24a m Lumbar spondylosis November 07, 2024 8:24a m Opiate analgesic use agreement exists [facility] 2024 8:24am Overweight November 07, 2024 8:24a m Type 2 diabetes mellitus with hyperglyce [facility] November 07, 2024 8:24am Chief Complaint Admit Date Wellness February 06, 2025 8: 26am Reason for Visit Admit Date Elevated cholesterol February 06, 2025 8 :26am Folic acid deficiency February 06, 2025 8:26am Hypertension February 06, 2025 8: 26am Lumbar spondylosis February 06, 2025 8: 26am Opiate analgesic use agreement exists [facility] 2024 8:26am Overweight February 06, 2025 8: 26am Traumatic arthritis of left ankle February 06, 2025 8:26am Type 2 diabetes mellitus with hyperglyce king February 06, 2025 8:26am Medicare annual wellness visit, subseque nt February 06, 2025 8:26am Screening PSA (prostate specific antigen ) February 06, 2025 8:26am Advance Directives Advance Directive Response Recorded Date/ [...] content) Team Status: Active Member Role Status Jacob Mccrary DO Primary Care Provider Active Team Status: Inactive Member Role Status Jacob Mccrary DO Primary Care Provide r, Attending Provider Active Start: April 26, 2024 End: April 26, 2024 Team Status: Inactive Member Role Status Jacob Mccrary DO Primary Care Provide r, Attending Provider Active Start: May 03, 2024 End: May 03, 2024 Team Status: Inactive Member Role Status Jacob Mccrary DO Primary Care Provide r, Attending Provider Active Start: July 23, 2024 End: July 23, 2024 Team Status: Active Member Role Status Jacob Mccrary DO Primary Care Provide r, Attending Provider Active Start: April 18, 2024 Team Status: Inactive Member Role Status Jacob Mccrary DO Primary Care Provide r, Attending Provider Active Start: January 23, 2024 End: January 23, 2024 Team Status: Inactive Member Role Status Dates Kp Tran MD Attending Provider Active Raad Mccrary DO Primary Care Provider Active Team Status: Active Member Role Status Jacob Mccrary DO Primary Care Provider Active Start: July 31, 2023 TERRENCE Knight Attending Provider Active Start : July 31, 2023 Team Status: Inactive Member Role Status Jacob Mccrary DO Primary Care Provide r, Attending [...] Care Provide r, Attending Provider Active Start: November 07, 2024 End: November 07, 2024 Team Status: Inactive Member Role Status Dates Raad Mccrary DO Primary Care Provider Active Start: February 06, 2025 End: February 06, 2025 Raad Mccrary , Attending Provider Active Sta rt: February 06, 2025 End: February 06, 2025 Goals (unrecognized section and content) Goals may [...] section and content) DATE CREATED AUTHOR 04/22/2022 [facility] DATE CREATED AUTHOR AUTHOR'S ORGANPAULA ATION 07/29/2022 [facility] REASON FOR VISIT (unrecogniz ed section and content) prescription refillPRESCRIPT ION [id number] COVID +3 month Follow upRefillrefill3 month Follow [...] BE BASED ON THE PRIMARY CLINICAL RECORDS. [facility]. provides no warranty or guarantee of the accuracy or completeness of information in this document.
--- OUTSIDE RECORDS SUMMARY | 2025-02-07 07:26 | XMS_ITS | Clinical Summary ---
Author Organization [facility] Address [address] [place] [address] Care Team Providers Care Workforce Management Analyst Name Role Phone Unavailable Primary Care Provider Unavailabl e Social History Tobacco Use Types Packs/Day Years Used Date Smoking Tobacco: Never Assessed Sex and Gender Information Value Date Recorded Sex Assigned at Not on file Legal Sex Male 7:18 PM EDT Gender Identity Not on file Sexual Orientation Not on file Last Filed Vital Signs Vital Sign Reading Time Taken Comments Blood Pressure 173/85 08/15/2018 12:00 PM EST Pulse - - Temperature - - Respiratory Rate - - Oxygen Saturation - - Inhaled Oxygen Concentration - - Weight 105 kg (231 lb) 08/15/2018 12:00 PM EST Height 180.3 cm (5' 11 ) 08/15/2018 12:00 PM EST Body Mass Index 32.22 08/15/2018 12:00 PM EST Plan of Treatment Not on file
--- OUTSIDE RECORDS SUMMARY | 2025-02-07 07:26 | XMS_ITS | Clinical Summary ---
Author Organization [facility] Address [id number] [place] [address] Care Team Providers Care Ironworker Foreman Name Role Phone Unavailable Primary Care Provider Unavailabl e Social History Tobacco Use Types Packs/Day Years Used Date Smoking Tobacco: Never Assessed Childcare Answer Date Recorded Childcare Unknown 11/20/2018 Employment Answer Date Recorded Employment Unknown 11/20/2018 Sex and Gender Information Value Date Recorded Sex Assigned at Not on file Legal Sex Male 9:38 PM EDT Gender Identity Not on file Sexual Orientation Not on file Plan of Treatment Not on file Medical Devices Not on file
[2025-02-07 07:55] LABS: Hematocrit 41.3 % (42.0-54.0); Hemoglobin 13.4 g/dL (14.0-18.0); Immature Granulocytes Abs Auto 0.02 10^3/uL (0.00-0.03); Immature Granulocytes Pct Auto 0.3 % (0.0-0.5); Lymphocytes Absolute Auto 1.8 10^3/uL (1.2-3.8); Mean Corpuscular HGB Conc 32.4 g/dL (29.9-35.2); Mean Corpuscular Hemoglobin 30.0 pg (25.9-34.0); Mean Corpuscular Volume 92.6 fL (80.0-94.0); Platelet Count 265 10^3/uL (150-450); Red Blood Count 4.46 10^6/uL (4.70-6.10); White Blood Count 6.2 10^3/uL (4.0-11.0)
[2025-02-07 08:05] LABS: Microalbum Creatinine Ratio Ur 16.3 mg/g (0.0-29.9)
[2025-02-07 08:37] LABS: Alanine Aminotransferase 22 U/L (16-63); Albumin Globulin Ratio 1.3; Albumin Level 3.9 g/dL (3.4-5.0); Alkaline Phosphatase 61 U/L (46-116); Anion Gap 10.6; Aspartate Amino Transferase 16 U/L (15-37); Blood Urea Nitrogen 14.0 mg/dL (7.0-18.0); Calcium 9.3 mg/dL (8.5-10.1); Carbon Dioxide 28.9 mmol/L (21.0-32.0); Chloride 105 mmol/L (98-107); Cholesterol 177 mg/dL (<=200); Estimated GFR (African America >60 (>=60 mL/min/1.73m^2); Estimated GFR (Non-African Ame >60 (>=60 mL/min/1.73m^2); Globulin 2.9 g/dL; Glucose 95 mg/dL (74-106); HDL Cholesterol 47 mg/dL (40-60); Potassium 4.5 mmol/L (3.5-5.1); Sodium 140 mmol/L (136-145); Total Protein 6.8 g/dL (6.4-8.2); Triglycerides 102 mg/dL (<=150); VLDL CHOLESTEROL 20.4 mg/dL
== END 2025-02-07 07:24 | disposition home or self-care (01) ==
LOC: LAB 07:24
PROVIDERS: PCP Internal Medicine; Visit Provider Internal Medicine
DX: E78.00 Pure hypercholesterolemia, unspecified (principal); E11.65 Type 2 diabetes mellitus with hyperglycemia; I10 Essential (primary) hypertension; Z12.5 Encounter for screening for malignant neoplasm of prostate
CPT/HCPCS: 36415; 80053; 80061; 82043; 82570; 83036; 85025; G0103